=== PATIENT | female | born 1950 | race Caucasian/White ===

== ENCOUNTER 2016-09-28 15:34 | Inpatient (IN) | payer OTHER ==
[~2016-09-28] VITALS: Ht 167.6 cm; Wt 77.6 kg
[2016-09-29 08:00] VITALS: BP 124/71
[2016-09-29] MEDS ORDERED: LIDOCAINE 1%, 20ML ONE (08:38)
[2016-09-29] MEDS ORDERED: FENTANYL PF 100 MCG/2ML ONE (08:39)
[2016-09-29] MEDS ORDERED: MIDAZOLAM 1 MG/ML, 5ML ONE (08:39)
[2016-09-29] MEDS ORDERED: FLUMAZENIL 0.1 MG/1 ML, 5ML ONE (08:39)
[2016-09-29] MEDS ORDERED: NALOXONE 1 MG/ML, 2ML ONE (08:39)
[2016-09-29 09:00] VITALS: BP 124/71
[2016-09-29] MEDS ORDERED: HYDROcodone/APAP 5/325 TABLET ONE (10:41)
[2016-09-29] MEDS: HYDROcodone/APAP 5/325 TABLET PO PRN (12:30)
[2016-09-29 17:22] VITALS: BP 106/53
[2016-09-29 19:05] VITALS: BP 119/71
[2016-09-29 21:36] VITALS: BP 119/71
[2016-09-30] VITALS (7 sets, daily range): BP systolic 111–130; BP diastolic 63–72
[2016-09-30 01:58] LABS: DIFF TOTAL CELLS COUNTED 100 CELL DIFF
[2016-09-30 02:00] LABS: VERIFY COUNTS? YES
[2016-09-30 02:01] LABS: OVALOCYTES 1+
[2016-09-30] MEDS ORDERED: PAROXETINE 10 MG TABLET PO SCH (09:00)
[2016-09-30] MEDS: ALLOPURINOL 300 MG TABLET PO SCH (09:31)
[2016-09-30] MEDS: HYDROCHLOROTHIAZIDE 25 MG TABLET PO SCH (09:31)
[2016-09-30] MEDS: LISINOPRIL 20 MG TABLET PO SCH (09:31)
[2016-09-30 10:42] LABS: ASPARTATE AMINO TRANSFERASE 25 U/L (15-37); BLOOD UREA NITROGEN 15 mg/dL (7-18)
[2016-09-30 12:18] LABS: DIFF TOTAL CELLS COUNTED 100 CELL DIFF
[2016-09-30 12:26] LABS: VERIFY COUNTS? YES
[2016-09-30 12:28] LABS: OVALOCYTES 1+
[2016-09-30 13:06] LABS: ASPARTATE AMINO TRANSFERASE 23 U/L (15-37); BLOOD UREA NITROGEN 14 mg/dL (7-18); TOTAL IRON BINDING CAPACITY 372 mcg/dL (250-450)
[2016-09-30] MEDS: PAROXETINE 10 MG TABLET PO SCH (21:11)
[2016-10-01 02:25] VITALS: BP 117/67
[2016-10-01 05:39] LABS: HIV 1&2 ANTIBODY SCREEN Nonreactive (Nonreactive); HIV-1 p24 ANTIGEN Nonreactive (Nonreactive)
[2016-10-01 06:05] LABS: DIFF TOTAL CELLS COUNTED 100 CELL DIFF
[2016-10-01 06:10] LABS: VERIFY COUNTS? YES
[2016-10-01 06:38] LABS: DYSPLASTIC NEUTROPHILS 1+
[2016-10-01] MEDS: LISINOPRIL 20 MG TABLET PO SCH (07:36)
[2016-10-01] MEDS: ALLOPURINOL 300 MG TABLET PO SCH (07:37)
[2016-10-01] MEDS: HYDROCHLOROTHIAZIDE 25 MG TABLET PO SCH (07:37)
[2016-10-01 07:39] VITALS: BP 107/62
[2016-10-01 13:36] VITALS: BP 18/71
[2016-10-01 19:33] VITALS: BP 126/74
[2016-10-01] MEDS: PAROXETINE 10 MG TABLET PO SCH (20:56)
[2016-10-02 04:01] VITALS: BP 111/70
[2016-10-02 05:06] LABS: ASPARTATE AMINO TRANSFERASE 22 U/L (15-37); BLOOD UREA NITROGEN 20 mg/dL (7-18)
[2016-10-02 05:51] LABS: DIFF TOTAL CELLS COUNTED 100 CELL DIFF
[2016-10-02 05:57] LABS: VERIFY COUNTS? YES
[2016-10-02 05:58] LABS: ANISOCYTOSIS 1+; POLYCHROMASIA 1+
[2016-10-02 05:59] LABS: DYSPLASTIC NEUTROPHILS 1+
[2016-10-02 08:00] VITALS: BP 117/77
[2016-10-02] MEDS: LISINOPRIL 20 MG TABLET PO SCH (09:14)
[2016-10-02] MEDS: ALLOPURINOL 300 MG TABLET PO SCH (09:14)
[2016-10-02] MEDS: SODIUM CHLORIDE 0.9% 1,000 ML IV SCH ×2 (09:16→20:04)
[2016-10-02] MEDS: ONDANSETRON 16 MG, DEXAMETHASONE 10 MG in SODIUM CHLORIDE 0.9% 50 ML IVPB SCH (09:44)
[2016-10-02] MEDS: FAMOTIDINE 20 MG/2 ML IVPush SCH (09:44)
[2016-10-02] MEDS: IDARUBICIN IV SCH (11:14)
[2016-10-02] MEDS: SODIUM CHLORIDE 0.9% IV SCH (11:15)
[2016-10-02] MEDS: CYTARABINE IV SCH (11:15)
[2016-10-02 13:10] VITALS: BP 99/53
[2016-10-02 19:01] VITALS: BP 105/59
[2016-10-02] MEDS: PAROXETINE 10 MG TABLET PO SCH (22:30)
[2016-10-03] VITALS (7 sets, daily range): BP systolic 108–123; BP diastolic 54–65
[2016-10-03] MEDS: SODIUM CHLORIDE 0.9% 1,000 ML IV SCH ×2 (04:59→14:41)
[2016-10-03 05:42] LABS: BLOOD UREA NITROGEN 22 mg/dL (7-18)
[2016-10-03 05:46] LABS: ASPARTATE AMINO TRANSFERASE 16 U/L (15-37)
[2016-10-03 06:14] LABS: DIFF TOTAL CELLS COUNTED 100 CELL DIFF
[2016-10-03 06:20] LABS: VERIFY COUNTS? YES
[2016-10-03 06:21] LABS: OVALOCYTES 1+
[2016-10-03] MEDS: ALLOPURINOL 300 MG TABLET PO SCH (07:29)
[2016-10-03] MEDS: LISINOPRIL 20 MG TABLET PO SCH (07:29)
[2016-10-03] MEDS: FAMOTIDINE 20 MG/2 ML IVPush SCH (10:21)
[2016-10-03] MEDS: ONDANSETRON 16 MG, DEXAMETHASONE 10 MG in SODIUM CHLORIDE 0.9% 50 ML IVPB SCH (10:21)
[2016-10-03] MEDS: IDARUBICIN IV SCH (11:22)
[2016-10-03] MEDS: CYTARABINE IV SCH (11:23)
[2016-10-03] MEDS: SODIUM CHLORIDE 0.9% IV SCH (11:23)
[2016-10-03] MEDS ORDERED: ACETAMINOPHEN 325 MG TABLET PO ONE (14:30)
[2016-10-03] MEDS ORDERED: DIPHENHYDRAMINE 25 MG CAPSULE PO PRN (14:30)
[2016-10-03] MEDS ORDERED: ACETAMINOPHEN 325 MG TABLET PO PRN (14:30)
[2016-10-03] MEDS: PAROXETINE 10 MG TABLET PO SCH (20:50)
[2016-10-04] MEDS: SODIUM CHLORIDE 0.9% 1,000 ML IV SCH ×3 (03:19→22:48)
[2016-10-04 04:55] VITALS: BP 128/63
[2016-10-04 06:02] LABS: ASPARTATE AMINO TRANSFERASE 17 U/L (15-37); BLOOD UREA NITROGEN 21 mg/dL (7-18)
[2016-10-04 06:38] LABS: DIFF TOTAL CELLS COUNTED 100 CELL DIFF
[2016-10-04 06:39] LABS: VERIFY COUNTS? YES
[2016-10-04 06:40] LABS: ANISOCYTOSIS 1+; OVALOCYTES 1+
[2016-10-04 07:13] VITALS: BP 118/68
[2016-10-04] MEDS: ALLOPURINOL 300 MG TABLET PO SCH (07:41)
[2016-10-04] MEDS: LISINOPRIL 20 MG TABLET PO SCH (07:41)
[2016-10-04] MEDS: FAMOTIDINE 20 MG/2 ML IVPush SCH (10:00)
[2016-10-04] MEDS: ONDANSETRON 16 MG, DEXAMETHASONE 10 MG in SODIUM CHLORIDE 0.9% 50 ML IVPB SCH (10:00)
[2016-10-04] MEDS: IDARUBICIN IV SCH (11:21)
[2016-10-04] MEDS: CYTARABINE IV SCH (11:22)
[2016-10-04] MEDS: SODIUM CHLORIDE 0.9% IV SCH (11:22)
[2016-10-04] MEDS ORDERED: FUROSEMIDE 20 MG/2 ML IV ONE (12:30)
[2016-10-04 13:13] VITALS: BP 107/59
[2016-10-04] MEDS: CIPROFLOXACIN 500 MG TABLET PO SCH ×2 (13:17→20:49)
[2016-10-04 20:04] VITALS: BP 109/55
[2016-10-04] MEDS: POLYETHYLENE GLYCOL 17 GM PACKET PO PRN (20:49)
[2016-10-04] MEDS: PAROXETINE 10 MG TABLET PO SCH (20:49)
[2016-10-04] MEDS: ACYCLOVIR 200 MG CAPSULE PO SCH (20:49)
[2016-10-05] VITALS (7 sets, daily range): BP systolic 117–133; BP diastolic 59–70
[2016-10-05 06:24] LABS: BLOOD UREA NITROGEN 24 mg/dL (7-18)
[2016-10-05 06:27] LABS: ASPARTATE AMINO TRANSFERASE 16 U/L (15-37)
[2016-10-05 06:44] LABS: DIFF TOTAL CELLS COUNTED 100 CELL DIFF
[2016-10-05 06:58] LABS: ANISOCYTOSIS 1+; VERIFY COUNTS? YES
[2016-10-05 06:59] LABS: OVALOCYTES 1+
[2016-10-05] MEDS ORDERED: ACETAMINOPHEN 325 MG TABLET PO ONE (08:00)
[2016-10-05] MEDS: DIPHENHYDRAMINE 25 MG CAPSULE PO PRN (08:50)
[2016-10-05] MEDS: ALLOPURINOL 300 MG TABLET PO SCH (08:51)
[2016-10-05] MEDS: CIPROFLOXACIN 500 MG TABLET PO SCH ×2 (08:51→20:56)
[2016-10-05] MEDS: ACYCLOVIR 200 MG CAPSULE PO SCH ×2 (08:51→20:56)
[2016-10-05] MEDS: LISINOPRIL 20 MG TABLET PO SCH (08:52)
[2016-10-05] MEDS: ONDANSETRON 16 MG, DEXAMETHASONE 10 MG in SODIUM CHLORIDE 0.9% 50 ML IVPB SCH (10:00)
[2016-10-05] MEDS: SODIUM CHLORIDE 0.9% 1,000 ML IV SCH ×2 (10:01→22:46)
[2016-10-05] MEDS: FAMOTIDINE 20 MG/2 ML IVPush SCH (10:08)
[2016-10-05] MEDS: CYTARABINE IV SCH (13:44)
[2016-10-05] MEDS: SODIUM CHLORIDE 0.9% IV SCH (13:44)
[2016-10-05] MEDS: PAROXETINE 10 MG TABLET PO SCH (20:56)
[2016-10-05] MEDS: POLYETHYLENE GLYCOL 17 GM PACKET PO PRN (20:57)
[2016-10-06 04:00] VITALS: BP 130/73
[2016-10-06 06:41] LABS: DIFF TOTAL CELLS COUNTED 50 CELL DIFFERENTIAL
[2016-10-06 06:42] LABS: ANISOCYTOSIS 1+; OVALOCYTES 1+; VERIFY COUNTS? YES
[2016-10-06 06:54] LABS: ASPARTATE AMINO TRANSFERASE 70 U/L (15-37); BLOOD UREA NITROGEN 24 mg/dL (7-18)
[2016-10-06] MEDS: ALLOPURINOL 300 MG TABLET PO SCH (09:00)
[2016-10-06 09:41] VITALS: BP 111/57
[2016-10-06] MEDS: CIPROFLOXACIN 500 MG TABLET PO SCH ×2 (09:57→19:52)
[2016-10-06] MEDS: ACYCLOVIR 200 MG CAPSULE PO SCH ×2 (09:57→19:51)
[2016-10-06] MEDS: LISINOPRIL 20 MG TABLET PO SCH (09:57)
[2016-10-06] MEDS: SODIUM CHLORIDE 0.9% 1,000 ML IV SCH ×2 (09:58→19:51)
[2016-10-06] MEDS: ONDANSETRON 16 MG, DEXAMETHASONE 10 MG in SODIUM CHLORIDE 0.9% 50 ML IVPB SCH (12:14)
[2016-10-06] MEDS: FAMOTIDINE 20 MG/2 ML IVPush SCH (12:15)
[2016-10-06 13:43] VITALS: BP 125/66
[2016-10-06] MEDS: SODIUM CHLORIDE 0.9% IV SCH (15:37)
[2016-10-06] MEDS: CYTARABINE IV SCH (15:37)
[2016-10-06 19:54] VITALS: BP 128/67
[2016-10-06] MEDS: PAROXETINE 10 MG TABLET PO SCH (22:41)
[2016-10-07] VITALS (9 sets, daily range): BP systolic 127–148; BP diastolic 60–84
[2016-10-07] MEDS: SODIUM CHLORIDE 0.9% 1,000 ML IV SCH ×2 (05:16→22:17)
[2016-10-07 05:30] LABS: BLOOD UREA NITROGEN 23 mg/dL (7-18)
[2016-10-07 05:33] LABS: ASPARTATE AMINO TRANSFERASE 38 U/L (15-37)
[2016-10-07 06:05] LABS: DIFF TOTAL CELLS COUNTED 50 CELL DIFFERENTIAL
[2016-10-07 06:10] LABS: VERIFY COUNTS? YES
[2016-10-07 06:11] LABS: ANISOCYTOSIS 1+
[2016-10-07 06:12] LABS: OVALOCYTES 1+
[2016-10-07] MEDS: ACYCLOVIR 200 MG CAPSULE PO SCH ×2 (08:54→20:19)
[2016-10-07] MEDS: CIPROFLOXACIN 500 MG TABLET PO SCH ×2 (08:54→20:19)
[2016-10-07] MEDS: LISINOPRIL 20 MG TABLET PO SCH (08:54)
[2016-10-07] MEDS: POLYETHYLENE GLYCOL 17 GM PACKET PO SCH (08:58)
[2016-10-07] MEDS: ONDANSETRON 16 MG, DEXAMETHASONE 10 MG in SODIUM CHLORIDE 0.9% 50 ML IVPB SCH (13:47)
[2016-10-07] MEDS: FAMOTIDINE 20 MG/2 ML IVPush SCH (13:47)
[2016-10-07] MEDS: CYTARABINE IV SCH (15:06)
[2016-10-07] MEDS: SODIUM CHLORIDE 0.9% IV SCH (15:06)
[2016-10-07] MEDS ORDERED: FUROSEMIDE 20 MG/2 ML IV ONE (17:30)
[2016-10-07] MEDS: PAROXETINE 10 MG TABLET PO SCH (22:17)
[2016-10-08 02:11] VITALS: BP 125/72
[2016-10-08 06:01] LABS: ASPARTATE AMINO TRANSFERASE 50 U/L (15-37); BLOOD UREA NITROGEN 21 mg/dL (7-18)
[2016-10-08 06:44] LABS: DIFF TOTAL CELLS COUNTED 100 CELL DIFF
[2016-10-08 06:50] LABS: ANISOCYTOSIS 1+; VERIFY COUNTS? YES
[2016-10-08 07:12] VITALS: BP 145/80
[2016-10-08] MEDS: ACYCLOVIR 200 MG CAPSULE PO SCH ×2 (07:20→21:10)
[2016-10-08] MEDS: SODIUM CHLORIDE 0.9% 1,000 ML IV SCH ×2 (07:21→17:59)
[2016-10-08] MEDS: POLYETHYLENE GLYCOL 17 GM PACKET PO SCH (07:21)
[2016-10-08] MEDS: LISINOPRIL 20 MG TABLET PO SCH (07:21)
[2016-10-08] MEDS: CIPROFLOXACIN 500 MG TABLET PO SCH ×2 (07:21→21:10)
[2016-10-08 13:33] VITALS: BP 117/59
[2016-10-08] MEDS: FAMOTIDINE 20 MG/2 ML IVPush SCH (13:50)
[2016-10-08] MEDS: ONDANSETRON 16 MG, DEXAMETHASONE 10 MG in SODIUM CHLORIDE 0.9% 50 ML IVPB SCH (13:50)
[2016-10-08] MEDS: CYTARABINE IV SCH (15:26)
[2016-10-08] MEDS: SODIUM CHLORIDE 0.9% IV SCH (15:26)
[2016-10-08 20:00] VITALS: BP 124/76
[2016-10-08] MEDS: PAROXETINE 10 MG TABLET PO SCH (22:32)
[2016-10-09 01:56] VITALS: BP 124/63
[2016-10-09] MEDS: SODIUM CHLORIDE 0.9% 1,000 ML IV SCH ×2 (04:38→15:07)
[2016-10-09 05:59] LABS: ASPARTATE AMINO TRANSFERASE 32 U/L (15-37); BLOOD UREA NITROGEN 21 mg/dL (7-18)
[2016-10-09 06:44] VITALS: BP 157/82
[2016-10-09 07:12] LABS: ANISOCYTOSIS 1+; DIFF TOTAL CELLS COUNTED 25 CELL DIFFERENTIAL; VERIFY COUNTS? YES
[2016-10-09] MEDS: CIPROFLOXACIN 500 MG TABLET PO SCH ×2 (09:12→19:40)
[2016-10-09] MEDS: ACYCLOVIR 200 MG CAPSULE PO SCH ×2 (09:12→19:40)
[2016-10-09] MEDS: LISINOPRIL 20 MG TABLET PO SCH (09:13)
[2016-10-09] MEDS: POLYETHYLENE GLYCOL 17 GM PACKET PO SCH (09:13)
[2016-10-09 14:07] LABS: CMV QUANT DNA PCR BLOOD Negative (Negative)
[2016-10-09 14:17] VITALS: BP 104/58
[2016-10-09] MEDS ORDERED: FAMOTIDINE 20 MG TABLET PO PRN (17:00)
[2016-10-09] MEDS ORDERED: FAMOTIDINE 20 MG/2 ML IVPush ONE (17:00)
[2016-10-09] MEDS ORDERED: ONDANSETRON 16 MG, DEXAMETHASONE 10 MG in SODIUM CHLORIDE 0.9% 50 ML IV ONE (17:30)
[2016-10-09 18:46] VITALS: BP 135/65
[2016-10-09] MEDS ORDERED: FUROSEMIDE 20 MG/2 ML IV ONE (22:00)
[2016-10-09] MEDS: PAROXETINE 10 MG TABLET PO SCH (22:22)
[2016-10-10] MEDS: SODIUM CHLORIDE 0.9% 1,000 ML IV SCH ×3 (01:18→20:34)
[2016-10-10 01:58] VITALS: BP 105/51
[2016-10-10 04:31] LABS: BLOOD UREA NITROGEN 21 mg/dL (7-18)
[2016-10-10 04:32] LABS: ASPARTATE AMINO TRANSFERASE 29 U/L (15-37)
[2016-10-10 04:58] LABS: DIFF TOTAL CELLS COUNTED 100 CELL DIFF
[2016-10-10 05:04] LABS: ANISOCYTOSIS 1+; OVALOCYTES 1+
[2016-10-10 05:10] LABS: VERIFY COUNTS? YES
[2016-10-10 07:28] VITALS: BP 126/73
[2016-10-10] MEDS: ACYCLOVIR 200 MG CAPSULE PO SCH ×2 (09:23→20:34)
[2016-10-10] MEDS: CIPROFLOXACIN 500 MG TABLET PO SCH ×2 (09:23→20:34)
[2016-10-10] MEDS: LISINOPRIL 20 MG TABLET PO SCH (09:23)
[2016-10-10] MEDS: POLYETHYLENE GLYCOL 17 GM PACKET PO SCH (09:24)
[2016-10-10] MEDS: ONDANSETRON 2MG/ML, 2ML IVPush PRN (12:58)
[2016-10-10 14:10] VITALS: BP 98/50
[2016-10-10] MEDS: FAMOTIDINE 20 MG TABLET PO SCH (20:34)
[2016-10-10 20:35] VITALS: BP 130/66
[2016-10-10] MEDS: PAROXETINE 10 MG TABLET PO SCH (22:49)
[2016-10-11 00:47] VITALS: BP 130/70
[2016-10-11 05:14] VITALS: BP 112/59
[2016-10-11] MEDS ORDERED: PHARMACOKINETIC MONITORING MC PRN (05:30)
[2016-10-11] MEDS ORDERED: VANCOMYCIN PER PHARMACY MC PRN (05:30)
[2016-10-11] MEDS ORDERED: PIPERACILLIN/TAZO 3.375 GM in SODIUM CHLORIDE 0.9% 50 ML IV SCH (05:30)
[2016-10-11 05:49] LABS: DIFF TOTAL CELLS COUNTED 25 CELL DIFFERENTIAL
[2016-10-11 05:52] LABS: ASPARTATE AMINO TRANSFERASE 14 U/L (15-37); BLOOD UREA NITROGEN 15 mg/dL (7-18)
[2016-10-11 05:53] LABS: VERIFY COUNTS? YES
[2016-10-11 05:54] LABS: ANISOCYTOSIS 1+
[2016-10-11 05:55] LABS: OVALOCYTES 1+
[2016-10-11] MEDS: PIPERACILLIN/TAZO/PMX 3.375GM 50 ML IV SCH ×4 (06:13→23:36)
[2016-10-11 07:14] VITALS: BP 115/64
[2016-10-11] MEDS: VANCOMYCIN 1,500 MG in SODIUM CHLORIDE 0.9% 250 ML IV SCH (07:32)
[2016-10-11] MEDS: SODIUM CHLORIDE 0.9% 1,000 ML IV SCH ×2 (07:32→17:48)
[2016-10-11] MEDS ORDERED: FLUCONAZOLE 200 MG TABLET PO ONE (08:30)
[2016-10-11] MEDS: NEUTRA PHOS K 250 MG TABLET PO SCH ×2 (08:56→21:47)
[2016-10-11] MEDS: CIPROFLOXACIN 500 MG TABLET PO SCH (08:57)
[2016-10-11] MEDS: FAMOTIDINE 20 MG TABLET PO SCH (08:57)
[2016-10-11] MEDS: LISINOPRIL 20 MG TABLET PO SCH (08:57)
[2016-10-11] MEDS: ACYCLOVIR 200 MG CAPSULE PO SCH ×2 (08:57→21:47)
[2016-10-11] MEDS: POLYETHYLENE GLYCOL 17 GM PACKET PO SCH (08:57)
[2016-10-11] MEDS: maalox/diphenh/lido/sucralfate 5 ML PO SCH ×3 (10:01→21:46)
[2016-10-11] MEDS: ACETAMINOPHEN 325 MG TABLET PO PRN (10:30)
[2016-10-11] MEDS: MICAFUNGIN 100 MG in SODIUM CHLORIDE 0.9% 100 ML IV SCH (11:52)
[2016-10-11 14:59] VITALS: BP 111/49
[2016-10-11] MEDS: NYSTATIN 500,000 UNITS/5 ML UDC PO SCH ×2 (17:00→21:46)
[2016-10-11] MEDS: ONDANSETRON 2MG/ML, 2ML IVPush PRN (17:00)
[2016-10-11 18:38] VITALS: BP 105/61
[2016-10-11] MEDS ORDERED: ACETAMINOPHEN 650 MG/20.3 ML UDC PO PRN (19:00)
[2016-10-11 19:41] VITALS: BP 101/66
[2016-10-11] MEDS: FAMOTIDINE 20 MG/2 ML IVPush SCH (21:47)
[2016-10-11] MEDS: PAROXETINE 10 MG TABLET PO SCH (22:35)
[2016-10-12] VITALS (8 sets, daily range): BP systolic 82–117; BP diastolic 47–73
[2016-10-12] MEDS: SODIUM CHLORIDE 0.9% 1,000 ML IV SCH ×2 (03:25→22:17)
[2016-10-12 04:20] LABS: ASPARTATE AMINO TRANSFERASE 11 U/L (15-37); BLOOD UREA NITROGEN 11 mg/dL (7-18)
[2016-10-12 05:03] LABS: DIFF TOTAL CELLS COUNTED 100 CELL DIFF
[2016-10-12 05:13] LABS: ANISOCYTOSIS 1+; OVALOCYTES 1+; VERIFY COUNTS? YES
[2016-10-12] MEDS: PIPERACILLIN/TAZO/PMX 3.375GM 50 ML IV SCH ×3 (05:38→23:21)
[2016-10-12] MEDS: VANCOMYCIN 1,500 MG in SODIUM CHLORIDE 0.9% 250 ML IV SCH (06:11)
[2016-10-12] MEDS: NYSTATIN 500,000 UNITS/5 ML UDC PO SCH ×4 (06:11→22:17)
[2016-10-12] MEDS: maalox/diphenh/lido/sucralfate 5 ML PO SCH ×3 (08:51→22:17)
[2016-10-12] MEDS: FAMOTIDINE 20 MG/2 ML IVPush SCH ×2 (08:51→22:17)
[2016-10-12] MEDS: ACYCLOVIR 200 MG CAPSULE PO SCH ×2 (08:51→22:17)
[2016-10-12] MEDS: LISINOPRIL 20 MG TABLET PO SCH (08:52)
[2016-10-12] MEDS: NEUTRA PHOS K 250 MG TABLET PO SCH (08:52)
[2016-10-12] MEDS: POLYETHYLENE GLYCOL 17 GM PACKET PO SCH (08:52)
[2016-10-12] MEDS ORDERED: FLUCONAZOLE 100 MG TABLET PO SCH (09:00)
[2016-10-12] MEDS: MICAFUNGIN 100 MG in SODIUM CHLORIDE 0.9% 100 ML IV SCH (11:33)
[2016-10-12] MEDS: PAROXETINE 10 MG TABLET PO SCH (22:17)
[2016-10-13] VITALS (8 sets, daily range): BP systolic 98–120; BP diastolic 50–60
[2016-10-13] MEDS: PIPERACILLIN/TAZO/PMX 3.375GM 50 ML IV SCH ×4 (05:32→23:49)
[2016-10-13 06:02] LABS: ASPARTATE AMINO TRANSFERASE 6 U/L (15-37); BLOOD UREA NITROGEN 13 mg/dL (7-18)
[2016-10-13] MEDS: VANCOMYCIN 1,500 MG in SODIUM CHLORIDE 0.9% 250 ML IV SCH (06:51)
[2016-10-13] MEDS: NYSTATIN 500,000 UNITS/5 ML UDC PO SCH ×4 (06:51→20:56)
[2016-10-13] MEDS: POLYETHYLENE GLYCOL 17 GM PACKET PO SCH (09:00)
[2016-10-13 09:07] LABS: ANISOCYTOSIS 1+; DIFF TOTAL CELLS COUNTED 25 CELL DIFFERENTIAL; OVALOCYTES 1+; VERIFY COUNTS? YES
[2016-10-13] MEDS: SODIUM CHLORIDE 0.9% 1,000 ML IV SCH ×2 (10:42→17:39)
[2016-10-13] MEDS: ACYCLOVIR 200 MG CAPSULE PO SCH ×2 (10:42→20:57)
[2016-10-13] MEDS: LISINOPRIL 20 MG TABLET PO SCH (10:42)
[2016-10-13] MEDS: POTASSIUM CHLORIDE 20 MEQ TAB.ER.PRT PO SCH ×2 (10:42→17:34)
[2016-10-13] MEDS: FAMOTIDINE 20 MG/2 ML IVPush SCH ×2 (10:43→20:56)
[2016-10-13] MEDS: maalox/diphenh/lido/sucralfate 5 ML PO SCH ×3 (10:43→20:57)
[2016-10-13] MEDS: MICAFUNGIN 100 MG in SODIUM CHLORIDE 0.9% 100 ML IV SCH (11:44)
[2016-10-13] MEDS: ONDANSETRON 2MG/ML, 2ML IVPush PRN (20:33)
[2016-10-13] MEDS: PAROXETINE 10 MG TABLET PO SCH (22:29)
[2016-10-14 02:00] VITALS: BP 107/56
[2016-10-14] MEDS: SODIUM CHLORIDE 0.9% 1,000 ML IV SCH ×2 (03:57→21:11)
[2016-10-14 04:56] LABS: BLOOD UREA NITROGEN 12 mg/dL (7-18)
[2016-10-14 05:00] LABS: ASPARTATE AMINO TRANSFERASE 6 U/L (15-37)
[2016-10-14 05:04] LABS: DIFF TOTAL CELLS COUNTED 25 CELL DIFFERENTIAL
[2016-10-14 05:05] LABS: ANISOCYTOSIS 1+; OVALOCYTES 1+; VERIFY COUNTS? YES
[2016-10-14 05:43] VITALS: BP 100/55
[2016-10-14] MEDS: DIPHENHYDRAMINE 25 MG CAPSULE PO PRN (05:58)
[2016-10-14] MEDS: ACETAMINOPHEN 325 MG TABLET PO PRN ×2 (05:58→21:17)
[2016-10-14] MEDS: PIPERACILLIN/TAZO/PMX 3.375GM 50 ML IV SCH ×4 (05:58→23:30)
[2016-10-14] MEDS: NYSTATIN 500,000 UNITS/5 ML UDC PO SCH ×4 (06:00→21:00)
[2016-10-14 06:07] VITALS: BP 100/55
[2016-10-14] MEDS: VANCOMYCIN 1,500 MG in SODIUM CHLORIDE 0.9% 250 ML IV SCH (06:46)
[2016-10-14 07:04] VITALS: BP 106/53
[2016-10-14] MEDS: LISINOPRIL 20 MG TABLET PO SCH (08:35)
[2016-10-14] MEDS: FAMOTIDINE 20 MG/2 ML IVPush SCH ×2 (08:35→21:11)
[2016-10-14] MEDS: ACYCLOVIR 200 MG CAPSULE PO SCH ×2 (08:35→21:12)
[2016-10-14] MEDS: maalox/diphenh/lido/sucralfate 5 ML PO SCH ×3 (08:35→21:12)
[2016-10-14] MEDS: POTASSIUM CHLORIDE 20 MEQ TAB.ER.PRT PO SCH ×2 (08:36→16:59)
[2016-10-14] MEDS: POLYETHYLENE GLYCOL 17 GM PACKET PO SCH (08:38)
[2016-10-14] MEDS: LOPERAMIDE 2 MG CAPSULE PO PRN ×2 (09:55→22:46)
[2016-10-14] MEDS: MICAFUNGIN 100 MG in SODIUM CHLORIDE 0.9% 100 ML IV SCH (11:34)
[2016-10-14] MEDS: ONDANSETRON 2MG/ML, 2ML IVPush PRN ×2 (11:34→17:03)
[2016-10-14 12:28] VITALS: BP 93/51
[2016-10-14 20:32] VITALS: BP 136/59
[2016-10-14] MEDS: PAROXETINE 10 MG TABLET PO SCH (22:46)
[2016-10-15] VITALS (9 sets, daily range): BP systolic 95–138; BP diastolic 48–71
[2016-10-15] MEDS: SODIUM CHLORIDE 0.9% 1,000 ML IV SCH ×2 (04:52→19:39)
[2016-10-15] MEDS: PIPERACILLIN/TAZO/PMX 3.375GM 50 ML IV SCH ×4 (04:52→22:46)
[2016-10-15 05:09] LABS: ASPARTATE AMINO TRANSFERASE 7 U/L (15-37); BLOOD UREA NITROGEN 13 mg/dL (7-18)
[2016-10-15] MEDS: NYSTATIN 500,000 UNITS/5 ML UDC PO SCH ×4 (06:00→22:45)
[2016-10-15] MEDS: VANCOMYCIN 1,500 MG in SODIUM CHLORIDE 0.9% 250 ML IV SCH (06:00)
[2016-10-15 06:47] LABS: DIFF TOTAL CELLS COUNTED 25 CELL DIFFERENTIAL
[2016-10-15 06:48] LABS: VERIFY COUNTS? YES
[2016-10-15 06:50] LABS: ANISOCYTOSIS 1+; OVALOCYTES 1+
[2016-10-15] MEDS: POLYETHYLENE GLYCOL 17 GM PACKET PO SCH (09:00)
[2016-10-15] MEDS: FAMOTIDINE 20 MG/2 ML IVPush SCH ×2 (09:24→22:46)
[2016-10-15] MEDS: ACYCLOVIR 200 MG CAPSULE PO SCH ×2 (09:25→22:46)
[2016-10-15] MEDS: LISINOPRIL 20 MG TABLET PO SCH (09:25)
[2016-10-15] MEDS: maalox/diphenh/lido/sucralfate 5 ML PO SCH ×3 (09:25→22:45)
[2016-10-15] MEDS: ONDANSETRON 2MG/ML, 2ML IVPush PRN ×2 (09:44→13:50)
[2016-10-15] MEDS: DIPHENHYDRAMINE 25 MG CAPSULE PO PRN (09:46)
[2016-10-15] MEDS: ACETAMINOPHEN 325 MG TABLET PO PRN (09:47)
[2016-10-15] MEDS: MICAFUNGIN 100 MG in SODIUM CHLORIDE 0.9% 100 ML IV SCH (13:50)
[2016-10-15] MEDS: VANCOMYCIN 1,300 MG in SODIUM CHLORIDE 0.9% 250 ML IV SCH (19:43)
[2016-10-15] MEDS: PAROXETINE 10 MG TABLET PO SCH (22:46)
[2016-10-16] VITALS (7 sets, daily range): BP systolic 119–141; BP diastolic 59–76
[2016-10-16] MEDS: HYDROcodone/APAP 5/325 TABLET PO PRN (03:19)
[2016-10-16 05:29] LABS: ASPARTATE AMINO TRANSFERASE 12 U/L (15-37); BLOOD UREA NITROGEN 10 mg/dL (7-18)
[2016-10-16] MEDS: PIPERACILLIN/TAZO/PMX 3.375GM 50 ML IV SCH ×3 (05:44→20:19)
[2016-10-16] MEDS: SODIUM CHLORIDE 0.9% 1,000 ML IV SCH ×3 (05:44→20:19)
[2016-10-16] MEDS: NYSTATIN 500,000 UNITS/5 ML UDC PO SCH ×4 (05:45→20:20)
[2016-10-16 07:00] LABS: ANISOCYTOSIS 1+
[2016-10-16 07:01] LABS: OVALOCYTES 1+
[2016-10-16] MEDS: VANCOMYCIN 1,300 MG in SODIUM CHLORIDE 0.9% 250 ML IV SCH ×2 (08:48→21:15)
[2016-10-16] MEDS: POLYETHYLENE GLYCOL 17 GM PACKET PO SCH (08:48)
[2016-10-16] MEDS: FAMOTIDINE 20 MG/2 ML IVPush SCH ×2 (08:50→20:19)
[2016-10-16] MEDS: maalox/diphenh/lido/sucralfate 5 ML PO SCH ×3 (08:53→20:19)
[2016-10-16] MEDS: LISINOPRIL 20 MG TABLET PO SCH (08:55)
[2016-10-16] MEDS: ACYCLOVIR 200 MG CAPSULE PO SCH ×2 (08:55→20:20)
[2016-10-16] MEDS: HYDROCORTISONE 100 MG INJ. IVPush PRN (09:32)
[2016-10-16] MEDS: MICAFUNGIN 100 MG in SODIUM CHLORIDE 0.9% 100 ML IV SCH (11:02)
[2016-10-16] MEDS: ONDANSETRON 2MG/ML, 2ML IVPush PRN ×2 (12:21→18:41)
[2016-10-16] MEDS ORDERED: LIDOCAINE 1%, 20ML ONE (12:24)
[2016-10-16] MEDS ORDERED: MIDAZOLAM 1 MG/ML, 5ML ONE (12:39)
[2016-10-16] MEDS ORDERED: FLUMAZENIL 0.1 MG/1 ML, 5ML ONE (12:40)
[2016-10-16] MEDS ORDERED: FENTANYL PF 100 MCG/2ML ONE (12:40)
[2016-10-16] MEDS ORDERED: NALOXONE 1 MG/ML, 2ML ONE (12:40)
[2016-10-16] MEDS: LOPERAMIDE 2 MG CAPSULE PO PRN (16:29)
[2016-10-16] MEDS: PAROXETINE 10 MG TABLET PO SCH (22:35)
[2016-10-17 02:02] VITALS: BP 153/74
[2016-10-17] MEDS: PIPERACILLIN/TAZO/PMX 3.375GM 50 ML IV SCH ×4 (02:16→20:23)
[2016-10-17 05:22] LABS: ASPARTATE AMINO TRANSFERASE 9 U/L (15-37); BLOOD UREA NITROGEN 10 mg/dL (7-18)
[2016-10-17 06:14] LABS: DIFF TOTAL CELLS COUNTED 100 CELL DIFF
[2016-10-17 06:19] LABS: ANISOCYTOSIS 1+; SPHEROCYTES 1+
[2016-10-17 06:20] LABS: OVALOCYTES 1+
[2016-10-17 07:15] VITALS: BP 124/62
[2016-10-17 07:19] LABS: VERIFY COUNTS? YES
[2016-10-17] MEDS: NYSTATIN 500,000 UNITS/5 ML UDC PO SCH ×4 (08:18→20:23)
[2016-10-17] MEDS: FAMOTIDINE 20 MG/2 ML IVPush SCH ×2 (08:20→20:22)
[2016-10-17] MEDS: ACYCLOVIR 200 MG CAPSULE PO SCH ×2 (08:21→20:23)
[2016-10-17] MEDS: LISINOPRIL 20 MG TABLET PO SCH (08:21)
[2016-10-17] MEDS: maalox/diphenh/lido/sucralfate 5 ML PO SCH ×3 (08:22→20:23)
[2016-10-17] MEDS: POLYETHYLENE GLYCOL 17 GM PACKET PO SCH (08:22)
[2016-10-17] MEDS: VANCOMYCIN 1,300 MG in SODIUM CHLORIDE 0.9% 250 ML IV SCH ×2 (09:13→21:55)
[2016-10-17] MEDS ORDERED: POTASSIUM CHLORIDE 40 MEQ in SODIUM CHLORIDE 0.9% 500 ML IV ONE (10:00)
[2016-10-17] MEDS: ONDANSETRON 2MG/ML, 2ML IVPush PRN ×2 (11:36→16:25)
[2016-10-17] MEDS: SODIUM CHLORIDE 0.9% 1,000 ML IV SCH ×2 (11:37→20:23)
[2016-10-17] MEDS: MICAFUNGIN 100 MG in SODIUM CHLORIDE 0.9% 100 ML IV SCH (11:46)
[2016-10-17 12:50] VITALS: BP 120/63
[2016-10-17] MEDS: ACETAMINOPHEN 325 MG TABLET PO PRN (14:04)
[2016-10-17] MEDS ORDERED: PROMETHAZINE 25 MG/ML, 1ML IM PRN (15:00)
[2016-10-17 21:27] VITALS: BP 132/69
[2016-10-17] MEDS: PAROXETINE 10 MG TABLET PO SCH (22:29)
[2016-10-18] MEDS: PIPERACILLIN/TAZO/PMX 3.375GM 50 ML IV SCH ×4 (01:11→20:23)
[2016-10-18 01:13] VITALS: BP 140/72
[2016-10-18] MEDS: NYSTATIN 500,000 UNITS/5 ML UDC PO SCH ×4 (05:25→20:23)
[2016-10-18 06:05] LABS: ASPARTATE AMINO TRANSFERASE 20 U/L (15-37); BLOOD UREA NITROGEN 8 mg/dL (7-18)
[2016-10-18 06:53] LABS: ANISOCYTOSIS 1+; DIFF TOTAL CELLS COUNTED 25 CELL DIFFERENTIAL; VERIFY COUNTS? YES
[2016-10-18 06:54] LABS: OVALOCYTES 1+
[2016-10-18 08:00] VITALS: BP 134/68
[2016-10-18] MEDS: FAMOTIDINE 20 MG/2 ML IVPush SCH ×2 (08:19→20:23)
[2016-10-18] MEDS: ACYCLOVIR 200 MG CAPSULE PO SCH ×2 (08:19→20:24)
[2016-10-18] MEDS: LISINOPRIL 20 MG TABLET PO SCH (08:19)
[2016-10-18] MEDS: maalox/diphenh/lido/sucralfate 5 ML PO SCH ×2 (08:19→16:01)
[2016-10-18] MEDS: SODIUM CHLORIDE 0.9% 1,000 ML IV SCH ×2 (08:20→16:11)
[2016-10-18] MEDS: POLYETHYLENE GLYCOL 17 GM PACKET PO SCH (08:20)
[2016-10-18] MEDS ORDERED: VANCOMYCIN 1,300 MG in SODIUM CHLORIDE 0.9% 250 ML IV ONE (10:00)
[2016-10-18] MEDS ORDERED: VANCOMYCIN 1,200 MG in SODIUM CHLORIDE 0.9% 250 ML IV SCH (10:00)
[2016-10-18] MEDS: ONDANSETRON 2MG/ML, 2ML IVPush PRN ×3 (10:10→20:25)
[2016-10-18] MEDS: MICAFUNGIN 100 MG in SODIUM CHLORIDE 0.9% 100 ML IV SCH (11:51)
[2016-10-18] MEDS: ACETAMINOPHEN 325 MG TABLET PO PRN (11:54)
[2016-10-18 15:56] VITALS: BP 141/67
[2016-10-18] MEDS ORDERED: POTASSIUM CHLORIDE 40 MEQ in SODIUM CHLORIDE 0.9% 500 ML IV ONE (16:00)
[2016-10-18 19:35] VITALS: BP 159/83
[2016-10-18] MEDS: PAROXETINE 10 MG TABLET PO SCH (22:35)
[2016-10-18] MEDS: VANCOMYCIN 1,200 MG in SODIUM CHLORIDE 0.9% 250 ML IV SCH (22:35)
[2016-10-19] MEDS: PIPERACILLIN/TAZO/PMX 3.375GM 50 ML IV SCH ×4 (02:23→20:18)
[2016-10-19] MEDS: maalox/diphenh/lido/sucralfate 5 ML PO SCH ×4 (02:23→20:19)
[2016-10-19] MEDS: ACETAMINOPHEN 325 MG TABLET PO PRN ×2 (02:57→14:44)
[2016-10-19 03:11] VITALS: BP 127/64
[2016-10-19 03:11] LABS: ASPARTATE AMINO TRANSFERASE 17 U/L (15-37); BLOOD UREA NITROGEN 5 mg/dL (7-18)
[2016-10-19 03:14] LABS: DIFF TOTAL CELLS COUNTED 100 CELL DIFF
[2016-10-19 03:32] LABS: ANISOCYTOSIS 1+; VERIFY COUNTS? YES
[2016-10-19 03:33] LABS: OVALOCYTES 1+
[2016-10-19] MEDS: NYSTATIN 500,000 UNITS/5 ML UDC PO SCH ×4 (05:27→20:19)
[2016-10-19] MEDS: SODIUM CHLORIDE 0.9% 1,000 ML IV SCH ×2 (05:28→09:32)
[2016-10-19 08:19] VITALS: BP 140/70
[2016-10-19] MEDS: LISINOPRIL 20 MG TABLET PO SCH (09:00)
[2016-10-19] MEDS: POLYETHYLENE GLYCOL 17 GM PACKET PO SCH (09:00)
[2016-10-19] MEDS: ACYCLOVIR 200 MG CAPSULE PO SCH ×2 (09:30→20:18)
[2016-10-19] MEDS: FAMOTIDINE 20 MG/2 ML IVPush SCH ×2 (09:30→20:18)
[2016-10-19] MEDS ORDERED: MAGNESIUM SULFATE PMX 4GM/100M 100 ML IV ONE (10:30)
[2016-10-19] MEDS ORDERED: POTASSIUM CHLORIDE 40 MEQ in SODIUM CHLORIDE 0.9% 500 ML IV ONE (10:30)
[2016-10-19] MEDS: ONDANSETRON 2MG/ML, 2ML IVPush PRN ×3 (10:45→20:22)
[2016-10-19] MEDS: VANCOMYCIN 1,200 MG in SODIUM CHLORIDE 0.9% 250 ML IV SCH ×2 (10:45→22:28)
[2016-10-19] MEDS: MICAFUNGIN 100 MG in SODIUM CHLORIDE 0.9% 100 ML IV SCH (12:41)
[2016-10-19 12:45] VITALS: BP 140/71
[2016-10-19 14:28] LABS: IS PT STATUS REG ER OR PRE ER? NO
[2016-10-19 20:17] VITALS: BP 149/77
[2016-10-19] MEDS: PAROXETINE 10 MG TABLET PO SCH (22:29)
[2016-10-20 01:16] VITALS: BP 146/67
[2016-10-20] MEDS: HYDROcodone/APAP 5/325 TABLET PO PRN (02:04)
[2016-10-20] MEDS: PIPERACILLIN/TAZO/PMX 3.375GM 50 ML IV SCH ×4 (02:04→20:21)
[2016-10-20] MEDS: SODIUM CHLORIDE 0.9% 1,000 ML IV SCH ×2 (02:04→20:21)
[2016-10-20 04:03] LABS: ASPARTATE AMINO TRANSFERASE 12 U/L (15-37); BLOOD UREA NITROGEN 5 mg/dL (7-18)
[2016-10-20 04:46] LABS: DIFF TOTAL CELLS COUNTED 100 CELL DIFF
[2016-10-20 04:58] LABS: ANISOCYTOSIS 1+; OVALOCYTES 1+; VERIFY COUNTS? YES
[2016-10-20] MEDS: NYSTATIN 500,000 UNITS/5 ML UDC PO SCH ×4 (05:09→21:07)
[2016-10-20] MEDS: LISINOPRIL 20 MG TABLET PO SCH (09:00)
[2016-10-20] MEDS: POLYETHYLENE GLYCOL 17 GM PACKET PO SCH (09:00)
[2016-10-20] MEDS: maalox/diphenh/lido/sucralfate 5 ML PO SCH ×3 (10:01→21:07)
[2016-10-20] MEDS: ACYCLOVIR 200 MG CAPSULE PO SCH ×2 (10:01→21:08)
[2016-10-20] MEDS: FAMOTIDINE 20 MG/2 ML IVPush SCH ×2 (10:01→21:07)
[2016-10-20 10:04] VITALS: BP 119/62
[2016-10-20] MEDS: ONDANSETRON 2MG/ML, 2ML IVPush PRN ×2 (10:51→16:16)
[2016-10-20] MEDS ORDERED: POTASSIUM CHLORIDE 40 MEQ in SODIUM CHLORIDE 0.9% 500 ML IV ONE (11:30)
[2016-10-20] MEDS: MICAFUNGIN 100 MG in SODIUM CHLORIDE 0.9% 100 ML IV SCH (12:00)
[2016-10-20] MEDS: ACETAMINOPHEN 325 MG TABLET PO PRN (14:58)
[2016-10-20 16:26] VITALS: BP 139/69
[2016-10-20 19:16] VITALS: BP 150/82
[2016-10-20 21:12] LABS: DIFF TOTAL CELLS COUNTED 100 CELL DIFF
[2016-10-20 21:20] LABS: ANISOCYTOSIS 1+; VERIFY COUNTS? YES
[2016-10-20 21:21] LABS: HYPOCHROMIA 1+
[2016-10-20] MEDS ORDERED: VANCOMYCIN 900 MG in SODIUM CHLORIDE 0.9% 250 ML IV SCH (22:00)
[2016-10-20] MEDS: VANCOMYCIN 900 MG in SODIUM CHLORIDE 0.9% 100 ML IV SCH (22:26)
[2016-10-20] MEDS: PAROXETINE 10 MG TABLET PO SCH (22:26)
[2016-10-20] MEDS: HYDROCORTISONE 100 MG INJ. IVPush PRN (22:27)
[2016-10-20 22:57] VITALS: BP 154/78
[2016-10-20] MEDS: PROMETHAZINE 25MG TABLET PO PRN (23:01)
[2016-10-21 01:00] VITALS: BP 146/78
[2016-10-21 01:18] VITALS: BP 146/75
[2016-10-21] MEDS: PIPERACILLIN/TAZO/PMX 3.375GM 50 ML IV SCH ×4 (02:19→21:07)
[2016-10-21] MEDS: NYSTATIN 500,000 UNITS/5 ML UDC PO SCH ×4 (05:02→21:05)
[2016-10-21 05:32] LABS: ASPARTATE AMINO TRANSFERASE 12 U/L (15-37); BLOOD UREA NITROGEN 7 mg/dL (7-18)
[2016-10-21 06:19] LABS: DIFF TOTAL CELLS COUNTED 25 CELL DIFFERENTIAL; VERIFY COUNTS? YES
[2016-10-21 06:20] LABS: OVALOCYTES 1+
[2016-10-21 07:30] VITALS: BP 130/72
[2016-10-21] MEDS: POLYETHYLENE GLYCOL 17 GM PACKET PO SCH (08:18)
[2016-10-21] MEDS: ACYCLOVIR 200 MG CAPSULE PO SCH ×2 (08:19→21:06)
[2016-10-21] MEDS: maalox/diphenh/lido/sucralfate 5 ML PO SCH ×3 (08:19→21:06)
[2016-10-21] MEDS: VANCOMYCIN 900 MG in SODIUM CHLORIDE 0.9% 100 ML IV SCH ×2 (10:37→22:30)
[2016-10-21] MEDS: SODIUM CHLORIDE 0.9% 1,000 ML IV SCH ×3 (10:38→22:30)
[2016-10-21] MEDS: FAMOTIDINE 20 MG/2 ML IVPush SCH ×2 (11:06→21:07)
[2016-10-21] MEDS: ONDANSETRON 2MG/ML, 2ML IVPush PRN ×2 (11:07→16:26)
[2016-10-21 13:42] VITALS: BP 150/75
[2016-10-21] MEDS: MICAFUNGIN 100 MG in SODIUM CHLORIDE 0.9% 100 ML IV SCH (16:26)
[2016-10-21 19:35] VITALS: BP 156/72
[2016-10-21] MEDS: PAROXETINE 10 MG TABLET PO SCH (22:29)
[2016-10-21] MEDS: PROMETHAZINE 25MG TABLET PO PRN (22:40)
[2016-10-22] MEDS: PIPERACILLIN/TAZO/PMX 3.375GM 50 ML IV SCH ×4 (01:51→20:48)
[2016-10-22 03:05] VITALS: BP 158/79
[2016-10-22] MEDS: ACETAMINOPHEN 325 MG TABLET PO PRN ×3 (03:19→19:21)
[2016-10-22 03:49] LABS: ASPARTATE AMINO TRANSFERASE 17 U/L (15-37); BLOOD UREA NITROGEN 9 mg/dL (7-18)
[2016-10-22 04:23] LABS: DIFF TOTAL CELLS COUNTED 25 CELL DIFFERENTIAL; VERIFY COUNTS? YES
[2016-10-22 04:24] LABS: ANISOCYTOSIS 1+
[2016-10-22 04:25] LABS: OVALOCYTES 1+
[2016-10-22] MEDS: NYSTATIN 500,000 UNITS/5 ML UDC PO SCH ×4 (05:49→20:48)
[2016-10-22] MEDS ORDERED: POTASSIUM CHLORIDE 20 MEQ TAB.ER.PRT PO ONE (08:30)
[2016-10-22] MEDS: maalox/diphenh/lido/sucralfate 5 ML PO SCH ×3 (08:37→20:48)
[2016-10-22] MEDS: SODIUM CHLORIDE 0.9% 1,000 ML IV SCH ×2 (08:37→15:56)
[2016-10-22] MEDS: FAMOTIDINE 20 MG/2 ML IVPush SCH ×2 (08:37→20:48)
[2016-10-22] MEDS: ACYCLOVIR 200 MG CAPSULE PO SCH ×2 (08:38→20:48)
[2016-10-22] MEDS: LISINOPRIL 10 MG TABLET PO SCH (08:39)
[2016-10-22] MEDS: POLYETHYLENE GLYCOL 17 GM PACKET PO SCH (08:39)
[2016-10-22 09:00] VITALS: BP 117/59
[2016-10-22] MEDS: MICAFUNGIN 100 MG in SODIUM CHLORIDE 0.9% 100 ML IV SCH (10:48)
[2016-10-22] MEDS: ONDANSETRON 2MG/ML, 2ML IVPush PRN ×2 (10:48→15:56)
[2016-10-22] MEDS: VANCOMYCIN 900 MG in SODIUM CHLORIDE 0.9% 100 ML IV SCH ×2 (11:03→22:33)
[2016-10-22 14:35] VITALS: BP 163/78
[2016-10-22 20:05] VITALS: BP 142/72
[2016-10-22] MEDS: PAROXETINE 10 MG TABLET PO SCH (22:33)
[2016-10-22] MEDS: PROMETHAZINE 25MG TABLET PO PRN (23:05)
[2016-10-23] MEDS: SODIUM CHLORIDE 0.9% 1,000 ML IV SCH ×3 (02:18→22:59)
[2016-10-23] MEDS: PIPERACILLIN/TAZO/PMX 3.375GM 50 ML IV SCH ×4 (02:18→20:19)
[2016-10-23 04:21] VITALS: BP 151/82
[2016-10-23 05:13] LABS: ASPARTATE AMINO TRANSFERASE 15 U/L (15-37); BLOOD UREA NITROGEN 8 mg/dL (7-18)
[2016-10-23] MEDS: NYSTATIN 500,000 UNITS/5 ML UDC PO SCH ×4 (05:48→20:20)
[2016-10-23 06:27] LABS: DIFF TOTAL CELLS COUNTED 25 CELL DIFFERENTIAL
[2016-10-23 06:29] LABS: ANISOCYTOSIS 1+; VERIFY COUNTS? YES
[2016-10-23 06:31] LABS: OVALOCYTES 1+
[2016-10-23 07:48] VITALS: BP 135/76
[2016-10-23] MEDS: LISINOPRIL 10 MG TABLET PO SCH (09:00)
[2016-10-23] MEDS ORDERED: POTASSIUM CHLORIDE 20 MEQ TAB.ER.PRT PO ONE (10:00)
[2016-10-23] MEDS: FAMOTIDINE 20 MG/2 ML IVPush SCH ×2 (10:34→20:19)
[2016-10-23] MEDS: POLYETHYLENE GLYCOL 17 GM PACKET PO SCH (10:34)
[2016-10-23] MEDS: maalox/diphenh/lido/sucralfate 5 ML PO SCH ×3 (10:34→20:20)
[2016-10-23] MEDS: ACYCLOVIR 200 MG CAPSULE PO SCH ×2 (10:35→20:20)
[2016-10-23] MEDS: ONDANSETRON 2MG/ML, 2ML IVPush PRN ×3 (10:36→20:28)
[2016-10-23] MEDS: MICAFUNGIN 100 MG in SODIUM CHLORIDE 0.9% 100 ML IV SCH (11:32)
[2016-10-23 12:50] VITALS: BP 141/78
[2016-10-23] MEDS: VANCOMYCIN 900 MG in SODIUM CHLORIDE 0.9% 100 ML IV SCH ×2 (13:47→22:59)
[2016-10-23 18:47] VITALS: BP 140/78
[2016-10-23] MEDS: PAROXETINE 10 MG TABLET PO SCH (22:59)
[2016-10-23] MEDS: PROMETHAZINE 25MG TABLET PO PRN (23:26)
[2016-10-24] MEDS: PIPERACILLIN/TAZO/PMX 3.375GM 50 ML IV SCH ×4 (01:30→19:34)
[2016-10-24 02:23] VITALS: BP 129/69
[2016-10-24] MEDS: NYSTATIN 500,000 UNITS/5 ML UDC PO SCH ×4 (05:18→20:25)
[2016-10-24 06:12] LABS: ASPARTATE AMINO TRANSFERASE 17 U/L (15-37); BLOOD UREA NITROGEN 8 mg/dL (7-18)
[2016-10-24 06:52] VITALS: BP 131/64
[2016-10-24] MEDS: POLYETHYLENE GLYCOL 17 GM PACKET PO SCH (07:47)
[2016-10-24 07:55] LABS: DIFF TOTAL CELLS COUNTED 100 CELL DIFF
[2016-10-24 07:56] LABS: VERIFY COUNTS? YES
[2016-10-24] MEDS: SODIUM CHLORIDE 0.9% 1,000 ML IV SCH ×2 (07:56→14:40)
[2016-10-24] MEDS: FAMOTIDINE 20 MG/2 ML IVPush SCH ×2 (07:56→20:25)
[2016-10-24 07:58] LABS: ANISOCYTOSIS 1+
[2016-10-24] MEDS: ACYCLOVIR 200 MG CAPSULE PO SCH ×2 (07:58→20:25)
[2016-10-24] MEDS: LISINOPRIL 10 MG TABLET PO SCH (07:59)
[2016-10-24] MEDS: maalox/diphenh/lido/sucralfate 5 ML PO SCH ×3 (07:59→20:25)
[2016-10-24] MEDS: ONDANSETRON 2MG/ML, 2ML IVPush PRN ×2 (10:29→16:43)
[2016-10-24] MEDS ORDERED: DIPHENHYDRAMINE 25 MG CAPSULE PO ONE ×2 (10:30→22:00)
[2016-10-24] MEDS: VANCOMYCIN 900 MG in SODIUM CHLORIDE 0.9% 100 ML IV SCH (10:32)
[2016-10-24] MEDS: MICAFUNGIN 100 MG in SODIUM CHLORIDE 0.9% 100 ML IV SCH (11:56)
[2016-10-24 13:56] VITALS: BP 131/67
[2016-10-24] MEDS: ACETAMINOPHEN 325 MG TABLET PO PRN (16:57)
[2016-10-24] MEDS ORDERED: methylPREDNISolone SOD SUCC 40 MG/ML IV ONE (18:30)
[2016-10-24 20:09] VITALS: BP 135/71
[2016-10-24] MEDS: PAROXETINE 10 MG TABLET PO SCH (23:11)
[2016-10-25] MEDS: PIPERACILLIN/TAZO/PMX 3.375GM 50 ML IV SCH ×4 (01:10→20:02)
[2016-10-25] MEDS: SODIUM CHLORIDE 0.9% 1,000 ML IV SCH ×2 (01:10→12:08)
[2016-10-25 02:32] VITALS: BP 135/65
[2016-10-25] MEDS ORDERED: DIPHENHYDRAMINE 25 MG CAPSULE PO ONE (05:00)
[2016-10-25] MEDS: NYSTATIN 500,000 UNITS/5 ML UDC PO SCH ×4 (05:06→20:40)
[2016-10-25 06:21] LABS: ASPARTATE AMINO TRANSFERASE 16 U/L (15-37); BLOOD UREA NITROGEN 12 mg/dL (7-18)
[2016-10-25 06:35] LABS: DIFF TOTAL CELLS COUNTED 100 CELL DIFF
[2016-10-25 06:41] LABS: VERIFY COUNTS? YES
[2016-10-25 06:43] LABS: ANISOCYTOSIS 1+
[2016-10-25 08:17] VITALS: BP 147/73
[2016-10-25] MEDS: LISINOPRIL 10 MG TABLET PO SCH (08:35)
[2016-10-25] MEDS: ACYCLOVIR 200 MG CAPSULE PO SCH ×2 (08:35→20:41)
[2016-10-25] MEDS: POLYETHYLENE GLYCOL 17 GM PACKET PO SCH (08:35)
[2016-10-25] MEDS: maalox/diphenh/lido/sucralfate 5 ML PO SCH ×3 (08:35→20:41)
[2016-10-25] MEDS: FAMOTIDINE 20 MG/2 ML IVPush SCH ×2 (08:35→20:40)
[2016-10-25] MEDS: ONDANSETRON 2MG/ML, 2ML IVPush PRN ×3 (10:54→20:40)
[2016-10-25] MEDS: DIPHENHYDRAMINE 25 MG CAPSULE PO PRN (12:09)
[2016-10-25] MEDS: LOPERAMIDE 2 MG CAPSULE PO PRN ×2 (12:09→16:28)
[2016-10-25] MEDS: MICAFUNGIN 100 MG in SODIUM CHLORIDE 0.9% 100 ML IV SCH (12:42)
[2016-10-25 14:43] VITALS: BP 147/77
[2016-10-25] MEDS ORDERED: methylPREDNISolone SOD SUCC 125 MG/2 ML IVPush ONE (16:30)
[2016-10-25] MEDS: PAROXETINE 10 MG TABLET PO SCH (20:41)
[2016-10-25 20:51] VITALS: BP 139/75
[2016-10-26] VITALS (7 sets, daily range): BP systolic 122–164; BP diastolic 62–76
[2016-10-26] MEDS: SODIUM CHLORIDE 0.9% 1,000 ML IV SCH ×3 (00:37→20:48)
[2016-10-26 03:43] LABS: ASPARTATE AMINO TRANSFERASE 18 U/L (15-37); BLOOD UREA NITROGEN 12 mg/dL (7-18)
[2016-10-26 03:46] LABS: DIFF TOTAL CELLS COUNTED 100 CELL DIFF
[2016-10-26 04:12] LABS: ANISOCYTOSIS 1+; VERIFY COUNTS? YES
[2016-10-26] MEDS: NYSTATIN 500,000 UNITS/5 ML UDC PO SCH ×4 (06:01→20:49)
[2016-10-26] MEDS: POLYETHYLENE GLYCOL 17 GM PACKET PO SCH (08:15)
[2016-10-26] MEDS: maalox/diphenh/lido/sucralfate 5 ML PO SCH ×3 (08:15→20:49)
[2016-10-26] MEDS: ACYCLOVIR 200 MG CAPSULE PO SCH ×2 (08:15→20:49)
[2016-10-26] MEDS: FAMOTIDINE 20 MG/2 ML IVPush SCH ×2 (08:15→20:49)
[2016-10-26] MEDS: LISINOPRIL 10 MG TABLET PO SCH (08:16)
[2016-10-26] MEDS: ONDANSETRON 2MG/ML, 2ML IVPush PRN ×2 (10:44→16:10)
[2016-10-26] MEDS: DIPHENHYDRAMINE 25 MG CAPSULE PO PRN ×2 (10:44→20:48)
[2016-10-26] MEDS: MICAFUNGIN 100 MG in SODIUM CHLORIDE 0.9% 100 ML IV SCH (11:50)
[2016-10-26] MEDS: PAROXETINE 10 MG TABLET PO SCH (22:27)
[2016-10-27] MEDS: DIPHENHYDRAMINE 25 MG CAPSULE PO PRN ×3 (02:50→16:27)
[2016-10-27 03:01] VITALS: BP 144/66
[2016-10-27 03:20] LABS: ASPARTATE AMINO TRANSFERASE 18 U/L (15-37); BLOOD UREA NITROGEN 14 mg/dL (7-18)
[2016-10-27 03:29] LABS: DIFF TOTAL CELLS COUNTED 100 CELL DIFF
[2016-10-27 03:39] LABS: ANISOCYTOSIS 1+; VERIFY COUNTS? YES
[2016-10-27] MEDS: SODIUM CHLORIDE 0.9% 1,000 ML IV SCH ×2 (06:06→16:27)
[2016-10-27] MEDS: NYSTATIN 500,000 UNITS/5 ML UDC PO SCH ×4 (06:06→20:46)
[2016-10-27 06:59] VITALS: BP 127/69
[2016-10-27] MEDS: maalox/diphenh/lido/sucralfate 5 ML PO SCH ×4 (07:36→21:00)
[2016-10-27] MEDS: FAMOTIDINE 20 MG/2 ML IVPush SCH ×2 (07:37→20:46)
[2016-10-27] MEDS: ACYCLOVIR 200 MG CAPSULE PO SCH ×2 (07:37→20:46)
[2016-10-27] MEDS: POLYETHYLENE GLYCOL 17 GM PACKET PO SCH (07:38)
[2016-10-27] MEDS: LISINOPRIL 10 MG TABLET PO SCH (07:38)
[2016-10-27] MEDS: ONDANSETRON 2MG/ML, 2ML IVPush PRN ×3 (10:34→20:46)
[2016-10-27] MEDS: POTASSIUM CHLORIDE 20 MEQ TAB.ER.PRT PO SCH ×2 (10:34→20:46)
[2016-10-27] MEDS: MICAFUNGIN 100 MG in SODIUM CHLORIDE 0.9% 100 ML IV SCH (10:35)
[2016-10-27] MEDS: ACETAMINOPHEN 325 MG TABLET PO PRN (12:23)
[2016-10-27 13:25] VITALS: BP 149/65
[2016-10-27 20:54] VITALS: BP 144/72
[2016-10-27] MEDS: LOPERAMIDE 2 MG CAPSULE PO PRN (22:22)
[2016-10-27] MEDS: PAROXETINE 10 MG TABLET PO SCH (22:22)
[2016-10-28] MEDS: DIPHENHYDRAMINE 25 MG CAPSULE PO PRN ×3 (00:40→18:21)
[2016-10-28] MEDS: SODIUM CHLORIDE 0.9% 1,000 ML IV SCH ×3 (01:29→22:21)
[2016-10-28 03:23] VITALS: BP 134/65
[2016-10-28 04:01] LABS: ASPARTATE AMINO TRANSFERASE 18 U/L (15-37); BLOOD UREA NITROGEN 11 mg/dL (7-18)
[2016-10-28 04:04] LABS: DIFF TOTAL CELLS COUNTED 100 CELL DIFF
[2016-10-28 04:17] LABS: ANISOCYTOSIS 1+; VERIFY COUNTS? YES
[2016-10-28] MEDS: NYSTATIN 500,000 UNITS/5 ML UDC PO SCH ×4 (06:03→21:15)
[2016-10-28] MEDS: ACETAMINOPHEN 325 MG TABLET PO PRN (06:09)
[2016-10-28 07:34] VITALS: BP 142/65
[2016-10-28] MEDS: FAMOTIDINE 20 MG/2 ML IVPush SCH (08:40)
[2016-10-28] MEDS: POLYETHYLENE GLYCOL 17 GM PACKET PO SCH (08:40)
[2016-10-28] MEDS: maalox/diphenh/lido/sucralfate 5 ML PO SCH ×3 (08:40→21:15)
[2016-10-28] MEDS: POTASSIUM CHLORIDE 20 MEQ TAB.ER.PRT PO SCH ×2 (08:40→21:16)
[2016-10-28] MEDS: LISINOPRIL 10 MG TABLET PO SCH (08:41)
[2016-10-28] MEDS: ACYCLOVIR 200 MG CAPSULE PO SCH ×2 (08:41→21:16)
[2016-10-28] MEDS: MICAFUNGIN 100 MG in SODIUM CHLORIDE 0.9% 100 ML IV SCH (11:47)
[2016-10-28] MEDS ORDERED: DIPHENHYDRAMINE 50 MG/ML, 1ML IVPush ONE (12:00)
[2016-10-28] MEDS: LOPERAMIDE 2 MG CAPSULE PO PRN ×2 (12:21→18:25)
[2016-10-28 13:34] VITALS: BP 136/67
[2016-10-28] MEDS: ONDANSETRON 2MG/ML, 2ML IVPush PRN (17:03)
[2016-10-28 21:17] VITALS: BP 142/61
[2016-10-28] MEDS: FAMOTIDINE 20 MG TABLET PO SCH (21:21)
[2016-10-28] MEDS ORDERED: HYDROCORTISONE 100 MG INJ. IVPush ONE (21:30)
[2016-10-28] MEDS: PAROXETINE 10 MG TABLET PO SCH (22:20)
[2016-10-29] MEDS: DIPHENHYDRAMINE 25 MG CAPSULE PO PRN ×5 (00:33→21:14)
[2016-10-29 00:35] VITALS: BP 127/61
[2016-10-29] MEDS: NYSTATIN 500,000 UNITS/5 ML UDC PO SCH ×2 (04:37→11:00)
[2016-10-29 04:57] LABS: BLOOD UREA NITROGEN 8 mg/dL (7-18)
[2016-10-29 05:00] LABS: ASPARTATE AMINO TRANSFERASE 11 U/L (15-37)
[2016-10-29 05:14] LABS: DIFF TOTAL CELLS COUNTED 100 CELL DIFF
[2016-10-29 05:18] LABS: ANISOCYTOSIS 1+; VERIFY COUNTS? YES
[2016-10-29 07:30] VITALS: BP 145/67
[2016-10-29] MEDS: ACYCLOVIR 200 MG CAPSULE PO SCH ×2 (08:40→21:15)
[2016-10-29] MEDS: SODIUM CHLORIDE 0.9% 1,000 ML IV SCH ×2 (08:40→21:15)
[2016-10-29] MEDS: maalox/diphenh/lido/sucralfate 5 ML PO SCH (08:41)
[2016-10-29] MEDS: FAMOTIDINE 20 MG TABLET PO SCH ×2 (08:41→21:14)
[2016-10-29] MEDS: LISINOPRIL 10 MG TABLET PO SCH (08:41)
[2016-10-29] MEDS: POTASSIUM CHLORIDE 20 MEQ TAB.ER.PRT PO SCH ×2 (08:41→21:14)
[2016-10-29] MEDS: POLYETHYLENE GLYCOL 17 GM PACKET PO SCH (08:41)
[2016-10-29 14:29] VITALS: BP 134/55
[2016-10-29] MEDS: CETIRIZINE 10 MG TABLET PO SCH (15:55)
[2016-10-29] MEDS ORDERED: HYDROCORTISONE CRM 0.025, 30GM RC PRN (16:00)
[2016-10-29] MEDS ORDERED: maalox/diphenh/lido/sucralfate 5 ML PO PRN (17:00)
[2016-10-29] MEDS ORDERED: NYSTATIN 500,000 UNITS/5 ML UDC PO PRN (17:00)
[2016-10-29] MEDS: hydrOXyzine 10MG TABLET PO PRN (18:02)
[2016-10-29 19:39] VITALS: BP 143/61
[2016-10-29] MEDS: PAROXETINE 10 MG TABLET PO SCH (21:14)
[2016-10-30] MEDS: hydrOXyzine 10MG TABLET PO PRN ×4 (00:25→21:54)
[2016-10-30 02:50] VITALS: BP 127/57
[2016-10-30] MEDS: DIPHENHYDRAMINE 25 MG CAPSULE PO PRN ×3 (03:35→17:02)
[2016-10-30] MEDS: SODIUM CHLORIDE 0.9% 1,000 ML IV SCH ×2 (03:36→13:39)
[2016-10-30 05:10] LABS: DIFF TOTAL CELLS COUNTED 100 CELL DIFF
[2016-10-30 05:18] LABS: ANISOCYTOSIS 1+; POLYCHROMASIA 1+; VERIFY COUNTS? YES
[2016-10-30] MEDS: CETIRIZINE 10 MG TABLET PO SCH (07:59)
[2016-10-30] MEDS: ACYCLOVIR 200 MG CAPSULE PO SCH ×2 (07:59→20:25)
[2016-10-30] MEDS: POTASSIUM CHLORIDE 20 MEQ TAB.ER.PRT PO SCH ×2 (07:59→20:25)
[2016-10-30] MEDS: POLYETHYLENE GLYCOL 17 GM PACKET PO SCH (08:00)
[2016-10-30] MEDS: FAMOTIDINE 20 MG TABLET PO SCH ×2 (08:00→21:54)
[2016-10-30 08:20] VITALS: BP 143/73
[2016-10-30] MEDS ORDERED: methylPREDNISolone SOD SUCC 125 MG/2 ML IVPush ONE (12:30)
[2016-10-30 13:56] VITALS: BP 129/71
[2016-10-30] MEDS ORDERED: MAGNESIUM SULFATE PMX 2GM/50ML 50 ML IV ONE (17:00)
[2016-10-30] MEDS: methylPREDNISolone SOD SUCC 125 MG/2 ML IVPush SCH ×2 (18:00→23:31)
[2016-10-30 19:20] VITALS: BP 143/70
[2016-10-30] MEDS: PAROXETINE 10 MG TABLET PO SCH (23:31)
[2016-10-31 02:00] VITALS: BP 132/70
[2016-10-31] MEDS: SODIUM CHLORIDE 0.9% 1,000 ML IV SCH ×3 (02:05→21:26)
[2016-10-31] MEDS: DIPHENHYDRAMINE 25 MG CAPSULE PO PRN ×2 (02:05→08:03)
[2016-10-31 02:40] LABS: BLOOD UREA NITROGEN 9 mg/dL (7-18); DIFF TOTAL CELLS COUNTED 100 CELL DIFF
[2016-10-31 02:55] LABS: VERIFY COUNTS? YES
[2016-10-31 02:57] LABS: ANISOCYTOSIS 1+
[2016-10-31] MEDS: methylPREDNISolone SOD SUCC 125 MG/2 ML IVPush SCH ×5 (04:34→23:27)
[2016-10-31] MEDS: hydrOXyzine 10MG TABLET PO PRN ×3 (04:34→21:23)
[2016-10-31] MEDS: POTASSIUM CHLORIDE 20 MEQ TAB.ER.PRT PO SCH ×2 (08:03→21:23)
[2016-10-31] MEDS: FAMOTIDINE 20 MG TABLET PO SCH ×2 (08:03→21:26)
[2016-10-31] MEDS: CETIRIZINE 10 MG TABLET PO SCH (08:03)
[2016-10-31] MEDS: ACYCLOVIR 200 MG CAPSULE PO SCH ×2 (08:03→21:23)
[2016-10-31] MEDS: POLYETHYLENE GLYCOL 17 GM PACKET PO SCH ×2 (08:03→17:33)
[2016-10-31 08:06] VITALS: BP 138/71
[2016-10-31 14:56] VITALS: BP 146/75
[2016-10-31 20:40] VITALS: BP 171/87
[2016-10-31] MEDS: PAROXETINE 10 MG TABLET PO SCH (23:24)
[2016-11-01] VITALS (7 sets, daily range): BP systolic 139–185; BP diastolic 58–143
[2016-11-01] MEDS: DIPHENHYDRAMINE 25 MG CAPSULE PO PRN ×2 (02:51→10:51)
[2016-11-01 06:04] LABS: DIFF TOTAL CELLS COUNTED 100 CELL DIFF
[2016-11-01 06:07] LABS: VERIFY COUNTS? YES
[2016-11-01 06:08] LABS: ANISOCYTOSIS 1+; POLYCHROMASIA 1+
[2016-11-01] MEDS: methylPREDNISolone SOD SUCC 125 MG/2 ML IVPush SCH ×4 (06:21→17:39)
[2016-11-01] MEDS: hydrOXyzine 10MG TABLET PO PRN ×3 (06:30→23:33)
[2016-11-01] MEDS: CETIRIZINE 10 MG TABLET PO SCH (09:29)
[2016-11-01] MEDS: POTASSIUM CHLORIDE 20 MEQ TAB.ER.PRT PO SCH ×2 (09:29→19:53)
[2016-11-01] MEDS: FAMOTIDINE 20 MG TABLET PO SCH ×2 (09:31→19:53)
[2016-11-01] MEDS: ACYCLOVIR 200 MG CAPSULE PO SCH ×2 (09:31→19:53)
[2016-11-01] MEDS: SODIUM CHLORIDE 0.9% 1,000 ML IV SCH ×2 (10:49→17:30)
[2016-11-01] MEDS: HYDROCORTISONE 100 MG INJ. IVPush PRN (12:48)
[2016-11-01] MEDS ORDERED: AMLODIPINE 5 MG TABLET PO SCH (18:00)
[2016-11-01] MEDS: PAROXETINE 10 MG TABLET PO SCH (22:34)
[2016-11-02] MEDS: SODIUM CHLORIDE 0.9% 1,000 ML IV SCH (01:35)
[2016-11-02 02:45] VITALS: BP 158/74
[2016-11-02] MEDS: DIPHENHYDRAMINE 25 MG CAPSULE PO PRN ×2 (04:10→23:53)
[2016-11-02 07:15] VITALS: BP 182/83
[2016-11-02] MEDS ORDERED: hydrALAzine 20 MG/ML, 1ML IV PRN (08:30)
[2016-11-02 08:49] VITALS: BP 163/81
[2016-11-02] MEDS ORDERED: MAALOX/HYOSCYAMINE/LIDOCAINE 45 ML BOTTLE PO ONE (09:00)
[2016-11-02] MEDS: ACYCLOVIR 200 MG CAPSULE PO SCH (09:00)
[2016-11-02] MEDS: POLYETHYLENE GLYCOL 17 GM PACKET PO SCH (09:00)
[2016-11-02 09:56] LABS: IS PT STATUS REG ER OR PRE ER? NO
[2016-11-02] MEDS ORDERED: OMNIPAQUE 350 MG/ML, 75ML BOTTLE ONE (10:27)
[2016-11-02] MEDS ORDERED: LIDOCAINE 1%, 20ML ONE (10:35)
[2016-11-02] MEDS ORDERED: FENTANYL PF 100 MCG/2ML ONE (10:49)
[2016-11-02] MEDS ORDERED: MIDAZOLAM 1 MG/ML, 5ML ONE (10:49)
[2016-11-02] MEDS: POTASSIUM CHLORIDE 20 MEQ TAB.ER.PRT PO SCH ×2 (13:09→19:34)
[2016-11-02] MEDS: CETIRIZINE 10 MG TABLET PO SCH (13:10)
[2016-11-02] MEDS: AMLODIPINE 5 MG TABLET PO SCH ×2 (13:10→23:09)
[2016-11-02] MEDS: FAMOTIDINE 20 MG TABLET PO SCH ×2 (13:11→19:34)
[2016-11-02 13:50] VITALS: BP 153/80
[2016-11-02] MEDS ORDERED: predniSONE 50MG TABLET PO SCH (19:00)
[2016-11-02 19:33] VITALS: BP 146/65
[2016-11-02] MEDS: hydrOXyzine 10MG TABLET PO PRN (19:34)
[2016-11-02] MEDS: PAROXETINE 10 MG TABLET PO SCH (23:09)
[2016-11-03 02:11] VITALS: BP 133/71
[2016-11-03 02:41] LABS: ASPARTATE AMINO TRANSFERASE 20 U/L (15-37); BLOOD UREA NITROGEN 16 mg/dL (7-18)
[2016-11-03 07:35] VITALS: BP 161/72
[2016-11-03] MEDS ORDERED: PRED50TA PO (08:28)
[2016-11-03] MEDS ORDERED: PARO10TA3 PO (08:28)
[2016-11-03] MEDS ORDERED: ALPR-475 PO (08:28)
[2016-11-03] MEDS ORDERED: CETI10TA18 PO (08:28)
[2016-11-03] MEDS ORDERED: AMLO5TAB2 PO (08:28)
[2016-11-03] MEDS ORDERED: HYDR10TA4 PO (08:28)
[2016-11-03] MEDS: POLYETHYLENE GLYCOL 17 GM PACKET PO SCH (09:00)
[2016-11-03] MEDS: CETIRIZINE 10 MG TABLET PO SCH (10:10)
[2016-11-03] MEDS: AMLODIPINE 5 MG TABLET PO SCH (10:10)
[2016-11-03] MEDS: FAMOTIDINE 20 MG TABLET PO SCH (10:10)
[2016-11-03] MEDS: POTASSIUM CHLORIDE 20 MEQ TAB.ER.PRT PO SCH (10:10)
[2016-11-03] MEDS ORDERED: ONDA4TAB7 PO (12:31)
[2016-11-03] MEDS ORDERED: HYDR-3138 PO (12:32)
[2016-11-03 13:37] VITALS: BP 156/83
== END 2016-11-03 16:19 | disposition home or self-care (01) | DRG 834 ==
LOC: 3NW 15:34
PROVIDERS: ADMIT Internal Medicine Hematology & Oncology; ATTEND Family Medicine
PROC: 07DR3ZX Extraction of Iliac Bone Marrow, Percutaneous Approach, Diagnostic (ICD-10-PCS; 2016-09-29)
PROC: 02HV33Z Insertion of Infusion Device into Superior Vena Cava, Percutaneous Approach (ICD-10-PCS; 2016-09-29)
PROC: B5181ZA Fluoroscopy of Superior Vena Cava using Low Osmolar Contrast, Guidance (ICD-10-PCS; 2016-09-29)
PROC: 30233R1 Transfusion of Nonautologous Platelets into Peripheral Vein, Percutaneous Approach (ICD-10-PCS; 2016-09-30)
PROC: 3E03305 Introduction of Other Antineoplastic into Peripheral Vein, Percutaneous Approach (ICD-10-PCS; 2016-10-02)
PROC: 30233N1 Transfusion of Nonautologous Red Blood Cells into Peripheral Vein, Percutaneous Approach (ICD-10-PCS; 2016-10-03)
PROC: 30233R1 Transfusion of Nonautologous Platelets into Peripheral Vein, Percutaneous Approach (ICD-10-PCS; 2016-10-07)
PROC: 30233N1 Transfusion of Nonautologous Red Blood Cells into Peripheral Vein, Percutaneous Approach (ICD-10-PCS; 2016-10-07)
PROC: 30233R1 Transfusion of Nonautologous Platelets into Peripheral Vein, Percutaneous Approach (ICD-10-PCS; 2016-10-12)
PROC: 30233N1 Transfusion of Nonautologous Red Blood Cells into Peripheral Vein, Percutaneous Approach (ICD-10-PCS; 2016-10-13)
PROC: 30233N1 Transfusion of Nonautologous Red Blood Cells into Peripheral Vein, Percutaneous Approach (ICD-10-PCS; 2016-10-15)
PROC: 0QB23ZX Excision of Right Pelvic Bone, Percutaneous Approach, Diagnostic (ICD-10-PCS; principal; 2016-10-16)
PROC: 07DR3ZX Extraction of Iliac Bone Marrow, Percutaneous Approach, Diagnostic (ICD-10-PCS; 2016-10-16)
PROC: 30233R1 Transfusion of Nonautologous Platelets into Peripheral Vein, Percutaneous Approach (ICD-10-PCS; 2016-10-16)
PROC: 30233R1 Transfusion of Nonautologous Platelets into Peripheral Vein, Percutaneous Approach (ICD-10-PCS; 2016-10-20)
PROC: 30233N1 Transfusion of Nonautologous Red Blood Cells into Peripheral Vein, Percutaneous Approach (ICD-10-PCS; 2016-10-26)
PROC: 30233N1 Transfusion of Nonautologous Red Blood Cells into Peripheral Vein, Percutaneous Approach (ICD-10-PCS; 2016-10-30)
PROC: 30233N1 Transfusion of Nonautologous Red Blood Cells into Peripheral Vein, Percutaneous Approach (ICD-10-PCS; 2016-11-01)
PROC: 0QB33ZX Excision of Left Pelvic Bone, Percutaneous Approach, Diagnostic (ICD-10-PCS; 2016-11-02)
PROC: 07DR3ZX Extraction of Iliac Bone Marrow, Percutaneous Approach, Diagnostic (ICD-10-PCS; 2016-11-02)
DX: C92.00 Acute myeloblastic leukemia, not having achieved remission (principal); D61.810 Antineoplastic chemotherapy induced pancytopenia; B37.0 Candidal stomatitis; R65.10 Systemic inflammatory response syndrome (SIRS) of non-infectious origin without acute organ dysfunction; Z51.11 Encounter for antineoplastic chemotherapy; C92.50 Acute myelomonocytic leukemia, not having achieved remission; A60.00 Herpesviral infection of urogenital system, unspecified; B02.9 Zoster without complications; D69.2 Other nonthrombocytopenic purpura; E87.6 Hypokalemia; F32.9 Major depressive disorder, single episode, unspecified; F42.9 Obsessive-compulsive disorder, unspecified; G89.29 Other chronic pain; I10 Essential (primary) hypertension; K12.30 Oral mucositis (ulcerative), unspecified; K21.9 Gastro-esophageal reflux disease without esophagitis; K59.00 Constipation, unspecified; L27.0 Generalized skin eruption due to drugs and medicaments taken internally; L29.9 Pruritus, unspecified; R13.10 Dysphagia, unspecified; R32 Unspecified urinary incontinence; M25.519 Pain in unspecified shoulder; R50.81 Fever presenting with conditions classified elsewhere; T45.1X5A Adverse effect of antineoplastic and immunosuppressive drugs, initial encounter; Z79.899 Other long term (current) drug therapy; Z82.0 Family history of epilepsy and other diseases of the nervous system; Y92.89 Other specified places as the place of occurrence of the external cause; Z88.1 Allergy status to other antibiotic agents; Z88.8 Allergy status to other drugs, medicaments and biological substances
CPT/HCPCS: 36415; 36569; 71010; 71020; 71275; 76937; 77001; 77012; 80048; 80053; 80202; 81003; 82040; 82607; 82746; 83540; 83550; 83615; 83690; 83735; 84100; 84484; 84550; 85025; 85097; 85379; 85384; 85610; 85651; 85730; 86140; 86644; 86645; 86703; 86704; 86706; 86708; 86803; 86850; 86900; 86920; 86923; 87040; 87324; 87340; 87497; 87899; 88237; 88264; 88280; 88305; 88311; 88313; 88341; 88342; 88360; 93005; 93306; 99156; 99157; G0364; J1100; J2248; J2250; J2405; J2543; J3010; J3370; J3480; J3490; J9100; J9211; Q0169; Q9967; C1751; G0435; G0461; J1200; J1720; J1940; J2310; J2920; J2930; J3475; J7030; J7040; J7050; J7512; P9016; P9037; P9040; Q0163; S0028

== ENCOUNTER 2016-11-23 08:00 | Inpatient (IN) | payer OTHER ==
[~2016-11-23] VITALS: Ht 167.6 cm; Wt 68.0 kg
[~2016-11-23 08:00] MED LIST: ALPR-475 PO; AMLO5TAB2 PO; CETI10TA18 PO; HYDR-3138 PO; HYDR10TA4 PO; ONDA4TAB7 PO; PARO10TA3 PO; PRED50TA PO
[2016-11-24 10:48] VITALS: BP 158/80
[2016-11-24] MEDS ORDERED: HYDR12.58 PO (11:03)
[2016-11-24] MEDS ORDERED: TEMA15CA PO (11:03)
[2016-11-24 11:28] LABS: HEMATOCRIT 36.7 % (34.6-47.8); HEMOGLOBIN 12.5 g/dL (11.7-16.4); WHITE BLOOD COUNT 6.9 x10^3/uL (3.4-10)
[2016-11-24 11:41] LABS: BLOOD UREA NITROGEN 22 mg/dL (7-18)
[2016-11-24 11:53] LABS: ASPARTATE AMINO TRANSFERASE 30 U/L (15-37)
[2016-11-24] MEDS ORDERED: D5%-0.45NACL+KCL 20MEQ 1,000 ML IV SCH (13:00)
[2016-11-24] MEDS ORDERED: SODIUM CHLORIDE 0.9% 1,000ML IV ONE (13:30)
[2016-11-24] MEDS: predniSOLONE OPHTH SUSP 1%, 5ML EACHEYE SCH ×3 (13:57→20:53)
[2016-11-24] MEDS ORDERED: PROCHLORPERAZINE 10MG TABLET PO PRN (14:00)
[2016-11-24] MEDS ORDERED: BISACODYL 5 MG EC TABLET PO PRN (14:00)
[2016-11-24] MEDS ORDERED: CETIRIZINE 10 MG TABLET PO PRN (14:00)
[2016-11-24] MEDS ORDERED: hydrOXyzine 10MG TABLET PO PRN (14:00)
[2016-11-24] MEDS ORDERED: PROCHLORPERAZINE 25 MG SUPP PR PRN (14:00)
[2016-11-24] MEDS ORDERED: PROCHLORPERAZINE 5 MG/ML, 2ML IVPush PRN (14:00)
[2016-11-24] MEDS ORDERED: HYDROcodone/APAP 5/325 TABLET PO PRN (14:00)
[2016-11-24] MEDS ORDERED: SODIUM CHLORIDE 0.9% IV SCH ×2 (16:00)
[2016-11-24] MEDS ORDERED: CYTARABINE IV SCH ×2 (16:00)
[2016-11-24] MEDS: ONDANSETRON 16 MG, DEXAMETHASONE 12 MG in SODIUM CHLORIDE 0.9% 50 ML IVPB SCH (16:16)
[2016-11-24 16:45] VITALS: BP 130/75
[2016-11-24] MEDS: SODIUM CHLORIDE 0.9% IV SCH (17:15)
[2016-11-24] MEDS: CYTARABINE IV SCH (17:15)
[2016-11-24] MEDS: SODIUM CHLORIDE 0.9% 1,000 ML IV SCH (17:30)
[2016-11-24 20:24] VITALS: BP 111/66
[2016-11-24] MEDS: SENNA/DOCUSATE TABLET PO SCH (20:52)
[2016-11-24] MEDS: AMLODIPINE 5 MG TABLET PO SCH (20:52)
[2016-11-24] MEDS: PAROXETINE 10 MG TABLET PO SCH (22:41)
[2016-11-24] MEDS: TEMAZEPAM 15 MG CAPSULE PO PRN (22:41)
[2016-11-25 03:52] VITALS: BP 126/74
[2016-11-25] MEDS ORDERED: CYTARABINE IV SCH ×2 (04:00)
[2016-11-25] MEDS ORDERED: SODIUM CHLORIDE 0.9% IV SCH ×2 (04:00)
[2016-11-25] MEDS: ONDANSETRON 16 MG, DEXAMETHASONE 12 MG in SODIUM CHLORIDE 0.9% 50 ML IVPB SCH (04:27)
[2016-11-25 04:59] LABS: HEMOGLOBIN 11.2 g/dL (11.7-16.4); WHITE BLOOD COUNT 4.8 x10^3/uL (3.4-10)
[2016-11-25 05:00] LABS: BLOOD UREA NITROGEN 20 mg/dL (7-18)
[2016-11-25 05:04] LABS: ASPARTATE AMINO TRANSFERASE 21 U/L (15-37)
[2016-11-25] MEDS: CYTARABINE IV SCH ×2 (05:14→05:45)
[2016-11-25] MEDS: SODIUM CHLORIDE 0.9% IV SCH ×2 (05:14→05:45)
[2016-11-25] MEDS: predniSOLONE OPHTH SUSP 1%, 5ML EACHEYE SCH ×4 (05:22→20:39)
[2016-11-25 07:36] VITALS: BP 118/79
[2016-11-25] MEDS: AMLODIPINE 5 MG TABLET PO SCH ×2 (07:44→20:40)
[2016-11-25] MEDS: HYDROCHLOROTHIAZIDE 12.5 MG CAPSULE PO SCH (07:44)
[2016-11-25] MEDS: SENNA/DOCUSATE TABLET PO SCH ×2 (07:44→20:40)
[2016-11-25] MEDS ORDERED: PAROXETINE 10 MG TABLET PO SCH (09:00)
[2016-11-25] MEDS: SODIUM CHLORIDE 0.9% 1,000 ML IV SCH ×2 (10:23→22:28)
[2016-11-25 13:48] VITALS: BP 113/62
[2016-11-25] MEDS: ONDANSETRON 8 MG TABLET PO PRN ×2 (14:11→22:33)
[2016-11-25 19:43] VITALS: BP 121/68
[2016-11-25] MEDS: TEMAZEPAM 15 MG CAPSULE PO PRN (22:27)
[2016-11-25] MEDS: PAROXETINE 10 MG TABLET PO SCH (22:27)
[2016-11-26 04:30] VITALS: BP 124/64
[2016-11-26 04:49] LABS: HEMATOCRIT 28.8 % (34.6-47.8); HEMOGLOBIN 9.9 g/dL (11.7-16.4); WHITE BLOOD COUNT 7.4 x10^3/uL (3.4-10)
[2016-11-26 04:59] LABS: BLOOD UREA NITROGEN 20 mg/dL (7-18)
[2016-11-26 05:02] LABS: ASPARTATE AMINO TRANSFERASE 17 U/L (15-37)
[2016-11-26] MEDS: predniSOLONE OPHTH SUSP 1%, 5ML EACHEYE SCH ×4 (05:24→20:53)
[2016-11-26 07:27] VITALS: BP 113/63
[2016-11-26] MEDS: HYDROCHLOROTHIAZIDE 12.5 MG CAPSULE PO SCH (07:28)
[2016-11-26] MEDS: SENNA/DOCUSATE TABLET PO SCH ×2 (07:29→20:53)
[2016-11-26] MEDS: AMLODIPINE 5 MG TABLET PO SCH ×2 (07:29→20:53)
[2016-11-26] MEDS: ONDANSETRON 8 MG TABLET PO PRN (10:48)
[2016-11-26] MEDS: SODIUM CHLORIDE 0.9% 1,000 ML IV SCH (12:01)
[2016-11-26 13:39] VITALS: BP 122/68
[2016-11-26] MEDS: ONDANSETRON 16 MG, DEXAMETHASONE 12 MG in SODIUM CHLORIDE 0.9% 50 ML IVPB SCH (16:10)
[2016-11-26] MEDS: SODIUM CHLORIDE 0.9% IV SCH (16:52)
[2016-11-26] MEDS: CYTARABINE IV SCH (16:52)
[2016-11-26 19:35] VITALS: BP 130/69
[2016-11-26] MEDS: PAROXETINE 10 MG TABLET PO SCH (22:14)
[2016-11-26] MEDS: TEMAZEPAM 15 MG CAPSULE PO PRN (22:14)
[2016-11-27] MEDS: SODIUM CHLORIDE 0.9% 1,000 ML IV SCH ×2 (01:56→15:55)
[2016-11-27 02:26] VITALS: BP 127/68
[2016-11-27 05:25] LABS: HEMATOCRIT 30.9 % (34.6-47.8); HEMOGLOBIN 10.5 g/dL (11.7-16.4); WHITE BLOOD COUNT 4.9 x10^3/uL (3.4-10)
[2016-11-27 05:32] LABS: ASPARTATE AMINO TRANSFERASE 23 U/L (15-37); BLOOD UREA NITROGEN 17 mg/dL (7-18)
[2016-11-27] MEDS: SODIUM CHLORIDE 0.9% IV SCH (06:22)
[2016-11-27] MEDS: CYTARABINE IV SCH (06:22)
[2016-11-27] MEDS: predniSOLONE OPHTH SUSP 1%, 5ML EACHEYE SCH ×4 (06:23→19:50)
[2016-11-27 06:49] VITALS: BP 142/77
[2016-11-27] MEDS: HYDROCHLOROTHIAZIDE 12.5 MG CAPSULE PO SCH (08:31)
[2016-11-27] MEDS: AMLODIPINE 5 MG TABLET PO SCH ×2 (08:31→19:50)
[2016-11-27] MEDS: SENNA/DOCUSATE TABLET PO SCH ×3 (08:31→19:51)
[2016-11-27 13:47] VITALS: BP 119/66
[2016-11-27 18:52] VITALS: BP 145/74
[2016-11-27] MEDS: ONDANSETRON 8 MG TABLET PO PRN (19:50)
[2016-11-27] MEDS: PAROXETINE 10 MG TABLET PO SCH (22:19)
[2016-11-27] MEDS: TEMAZEPAM 15 MG CAPSULE PO PRN (22:20)
[2016-11-28 01:57] VITALS: BP 114/63
[2016-11-28 04:37] LABS: HEMOGLOBIN 9.8 g/dL (11.7-16.4); WHITE BLOOD COUNT 4.8 x10^3/uL (3.4-10)
[2016-11-28] MEDS: SODIUM CHLORIDE 0.9% 1,000 ML IV SCH (04:40)
[2016-11-28 04:51] LABS: BLOOD UREA NITROGEN 19 mg/dL (7-18)
[2016-11-28 04:54] LABS: ASPARTATE AMINO TRANSFERASE 20 U/L (15-37)
[2016-11-28] MEDS: predniSOLONE OPHTH SUSP 1%, 5ML EACHEYE SCH ×4 (05:12→20:11)
[2016-11-28 08:06] VITALS: BP 132/75
[2016-11-28] MEDS: HYDROCHLOROTHIAZIDE 12.5 MG CAPSULE PO SCH (08:14)
[2016-11-28] MEDS: SENNA/DOCUSATE TABLET PO SCH ×2 (08:14→20:12)
[2016-11-28] MEDS: AMLODIPINE 5 MG TABLET PO SCH ×2 (08:14→20:12)
[2016-11-28 13:12] VITALS: BP 122/76
[2016-11-28] MEDS: ONDANSETRON 8 MG TABLET PO PRN (13:12)
[2016-11-28] MEDS: ONDANSETRON 16 MG, DEXAMETHASONE 12 MG in SODIUM CHLORIDE 0.9% 50 ML IVPB SCH (16:03)
[2016-11-28] MEDS: SODIUM CHLORIDE 0.9% IV SCH (16:52)
[2016-11-28] MEDS: CYTARABINE IV SCH (16:52)
[2016-11-28] MEDS: NS + 20MEQ KCL 1,000 ML IV SCH (17:35)
[2016-11-28 20:10] VITALS: BP 111/71
[2016-11-28] MEDS: TEMAZEPAM 15 MG CAPSULE PO PRN (22:25)
[2016-11-28] MEDS: PAROXETINE 10 MG TABLET PO SCH (22:25)
[2016-11-29 01:37] VITALS: BP 117/75
[2016-11-29 04:20] LABS: HEMATOCRIT 31.6 % (34.6-47.8); HEMOGLOBIN 10.9 g/dL (11.7-16.4)
[2016-11-29 04:28] LABS: BLOOD UREA NITROGEN 20 mg/dL (7-18)
[2016-11-29 04:31] LABS: ASPARTATE AMINO TRANSFERASE 22 U/L (15-37)
[2016-11-29 04:54] LABS: WHITE BLOOD COUNT 1.5 x10^3/uL (3.4-10)
[2016-11-29] MEDS: CYTARABINE IV SCH (04:58)
[2016-11-29] MEDS: SODIUM CHLORIDE 0.9% IV SCH (04:58)
[2016-11-29] MEDS: predniSOLONE OPHTH SUSP 1%, 5ML EACHEYE SCH ×4 (04:59→20:20)
[2016-11-29 06:37] VITALS: BP 134/70
[2016-11-29] MEDS: HYDROCHLOROTHIAZIDE 12.5 MG CAPSULE PO SCH (08:16)
[2016-11-29] MEDS: AMLODIPINE 5 MG TABLET PO SCH ×2 (08:16→21:08)
[2016-11-29] MEDS: PAROXETINE 10 MG TABLET PO SCH ×2 (08:17→23:34)
[2016-11-29] MEDS: SENNA/DOCUSATE TABLET PO SCH ×2 (08:18→21:00)
[2016-11-29] MEDS: NS + 20MEQ KCL 1,000 ML IV SCH ×2 (10:00→22:30)
[2016-11-29] MEDS: ONDANSETRON 2MG/ML, 2ML IVPush PRN ×2 (12:12→20:19)
[2016-11-29 13:46] VITALS: BP 142/74
[2016-11-29 19:32] VITALS: BP 135/72
[2016-11-29] MEDS: TEMAZEPAM 15 MG CAPSULE PO PRN (23:34)
[2016-11-30 02:22] VITALS: BP 116/67
[2016-11-30] MEDS: predniSOLONE OPHTH SUSP 1%, 5ML EACHEYE SCH ×4 (05:35→20:52)
[2016-11-30 05:39] LABS: ASPARTATE AMINO TRANSFERASE 31 U/L (15-37); BLOOD UREA NITROGEN 21 mg/dL (7-18)
[2016-11-30 05:42] LABS: HEMATOCRIT 27.8 % (34.6-47.8); HEMOGLOBIN 9.6 g/dL (11.7-16.4)
[2016-11-30 05:45] LABS: WHITE BLOOD COUNT 1.8 x10^3/uL (3.4-10)
[2016-11-30 07:35] VITALS: BP 151/79
[2016-11-30] MEDS: AMLODIPINE 5 MG TABLET PO SCH ×2 (09:17→20:52)
[2016-11-30] MEDS: HYDROCHLOROTHIAZIDE 12.5 MG CAPSULE PO SCH (09:17)
[2016-11-30] MEDS: PAROXETINE 10 MG TABLET PO SCH ×2 (09:17→22:36)
[2016-11-30] MEDS: SENNA/DOCUSATE TABLET PO SCH ×2 (09:17→21:00)
[2016-11-30] MEDS ORDERED: TBO-FILGRASTIM 300 MCG/0.5 ML SQ ONE ×2 (10:00)
[2016-11-30 14:30] VITALS: BP 116/71
[2016-11-30] MEDS: NS + 20MEQ KCL 1,000 ML IV SCH (15:00)
[2016-11-30 19:40] VITALS: BP 106/66
[2016-11-30] MEDS: TEMAZEPAM 15 MG CAPSULE PO PRN (22:36)
[2016-12-01] MEDS ORDERED: LEVO500T33 PO (03:06)
[2016-12-01 03:29] VITALS: BP 121/73
[2016-12-01] MEDS: NS + 20MEQ KCL 1,000 ML IV SCH (04:21)
[2016-12-01 04:52] LABS: HEMOGLOBIN 9.6 g/dL (11.7-16.4); WHITE BLOOD COUNT 2.8 x10^3/uL (3.4-10)
[2016-12-01 08:00] VITALS: BP 115/72
[2016-12-01] MEDS: predniSOLONE OPHTH SUSP 1%, 5ML EACHEYE SCH ×2 (08:00→11:00)
[2016-12-01] MEDS: SENNA/DOCUSATE TABLET PO SCH (08:34)
[2016-12-01] MEDS: AMLODIPINE 5 MG TABLET PO SCH (08:34)
[2016-12-01] MEDS: HYDROCHLOROTHIAZIDE 12.5 MG CAPSULE PO SCH (08:34)
[2016-12-01] MEDS ORDERED: TBO-FILGRASTIM 300 MCG/0.5 ML SQ ONE (10:00)
[2016-12-01 14:00] VITALS: BP 122/72
== END 2016-12-01 17:30 | disposition home or self-care (01) | DRG 837 ==
LOC: 3NW 11-24 10:18
PROVIDERS: ADMIT Internal Medicine Hematology & Oncology; ATTEND Internal Medicine Hematology & Oncology
DX: Z51.11 Encounter for antineoplastic chemotherapy (principal); D61.810 Antineoplastic chemotherapy induced pancytopenia; C92.00 Acute myeloblastic leukemia, not having achieved remission; F32.9 Major depressive disorder, single episode, unspecified; F41.9 Anxiety disorder, unspecified; E78.00 Pure hypercholesterolemia, unspecified; F42.9 Obsessive-compulsive disorder, unspecified; I10 Essential (primary) hypertension; L29.9 Pruritus, unspecified; Z82.0 Family history of epilepsy and other diseases of the nervous system; Z88.8 Allergy status to other drugs, medicaments and biological substances
CPT/HCPCS: 36415; 80053; 81003; 83735; 85025; J1100; J2405; J3480; J9100; Q0162; Q0164; J0780; J1447; J7030; J7050

== ENCOUNTER 2016-12-07 09:49 | Inpatient (IN) | payer OTHER ==
[2016-12-07] VITALS (11 sets, daily range): BP systolic 94–119; BP diastolic 53–73
[~2016-12-07] VITALS: Ht 165.1 cm; Wt 65.3 kg
[~2016-12-07 09:49] MED LIST changes: -HYDR-3138 PO; +HYDR-3237 PO; +HYDR12.58 PO; +LEVO500T47 PO; +TEMA15CA PO
[2016-12-07] MEDS ORDERED: SODIUM CHLORIDE 0.9% 1,000 ML IV ONE (10:54)
[2016-12-07] MEDS ORDERED: SODIUM CHLORIDE 0.9% 1,000ML IVBOLUS ONE (11:00)
[2016-12-07] MEDS ORDERED: SODIUM CHLORIDE FLUSH 10ML SYR IVF ONE (11:00)
[2016-12-07] MEDS ORDERED: CEFTRIAXONE PMX 1GM/50ML 50 ML IVPB ONE (11:00)
[2016-12-07] MEDS ORDERED: CEFTRIAXONE PMX 1GM/50ML 50 ML ONE (11:09)
[2016-12-07] MEDS ORDERED: FAMOTIDINE 20 MG/2 ML ONE (11:27)
[2016-12-07] MEDS ORDERED: MAALOX/HYOSCYAMINE/LIDOCAINE 45 ML BTL ONE (11:27)
[2016-12-07] MEDS ORDERED: FAMOTIDINE 20 MG/2 ML IVPush ONE (11:30)
[2016-12-07] MEDS ORDERED: MAALOX/HYOSCYAMINE/LIDOCAINE 45 ML BTL PO ONE (11:30)
[2016-12-07 11:44] LABS: BLOOD UREA NITROGEN 15 mg/dL (7-18)
[2016-12-07 11:48] LABS: ASPARTATE AMINO TRANSFERASE 18 U/L (15-37)
[2016-12-07] MEDS ORDERED: ONDANSETRON 2MG/ML, 2ML ONE (12:04)
[2016-12-07] MEDS ORDERED: ONDANSETRON 2MG/ML, 2ML IVPush ONE (12:30)
[2016-12-07 12:37] LABS: HEMATOCRIT 16.1 % (34.6-47.8); HEMOGLOBIN 5.8 g/dL (11.7-16.4); WHITE BLOOD COUNT 0.2 x10^3/uL (3.4-10)
[2016-12-07] MEDS ORDERED: [UNRECOGNIZED DRUG - CODE] PO (13:27)
[2016-12-07 13:42] LABS: PROTIME 11.2 Seconds (9.6-11.5)
[2016-12-07] MEDS ORDERED: LORazepam 2 MG/ML, 1ML IVPush PRN (14:00)
[2016-12-07] MEDS ORDERED: BISACODYL 10 MG SUPP PR PRN (14:00)
[2016-12-07] MEDS ORDERED: hydrALAzine 20 MG/ML, 1ML IVPush PRN (14:00)
[2016-12-07] MEDS ORDERED: VANCOMYCIN PER PHARMACY MC PRN (14:00)
[2016-12-07] MEDS ORDERED: DOCUSATE 100 MG CAPSULE PO PRN (14:00)
[2016-12-07] MEDS ORDERED: ACETAMINOPHEN 325 MG TABLET PO ONE (14:30)
[2016-12-07] MEDS ORDERED: DIPHENHYDRAMINE 50 MG/ML, 1ML IVPush ONE (14:30)
[2016-12-07] MEDS: morphine SULFATE 10 MG/ML, 1ML IVPush PRN ×2 (14:51→17:56)
[2016-12-07] MEDS ORDERED: SODIUM PHOSPHATE 20 MMOL in SODIUM CHLORIDE 0.9% 500 ML IV ONE (15:00)
[2016-12-07] MEDS ORDERED: PHARMACOKINETIC MONITORING MC PRN (15:00)
[2016-12-07] MEDS: VANCOMYCIN 1,300 MG in SODIUM CHLORIDE 0.9% 250 ML IV SCH (15:08)
[2016-12-07] MEDS ORDERED: HYDROCORTISONE 100 MG INJ. ONE (15:22)
[2016-12-07] MEDS ORDERED: HYDROCORTISONE 100 MG INJ. IVPush SCH (15:30)
[2016-12-07] MEDS ORDERED: OMNIPAQUE 350 MG/ML, 100ML BOTTLE ONE (17:00)
[2016-12-07] MEDS: ONDANSETRON 2MG/ML, 2ML IVPush PRN (17:57)
[2016-12-07] MEDS: MEROPENEM 1 GM in SODIUM CHLORIDE 0.9% 100 ML IV SCH (17:59)
[2016-12-07] MEDS: NS + 20MEQ KCL 1,000 ML IV SCH (18:09)
[2016-12-07] MEDS: FAMOTIDINE 20 MG/2 ML IVPush SCH (20:03)
[2016-12-07] MEDS: FLUCONAZOLE 200 MG/100 ML 100 ML IV SCH (21:10)
[2016-12-07] MEDS: PAROXETINE 10 MG TABLET PO SCH (21:37)
[2016-12-07] MEDS: AMLODIPINE 5 MG TABLET PO SCH (21:37)
[2016-12-07] MEDS: MIDOSTAURIN 50 MG PO SCH (21:37)
[2016-12-08] VITALS (11 sets, daily range): BP systolic 94–132; BP diastolic 54–63
[2016-12-08] MEDS: MEROPENEM 1 GM in SODIUM CHLORIDE 0.9% 100 ML IV SCH ×3 (01:46→18:27)
[2016-12-08 05:22] LABS: ASPARTATE AMINO TRANSFERASE 13 U/L (15-37); BLOOD UREA NITROGEN 15 mg/dL (7-18)
[2016-12-08 05:23] LABS: HEMATOCRIT 18.1 % (34.6-47.8); HEMOGLOBIN 6.4 g/dL (11.7-16.4); WHITE BLOOD COUNT 0.3 x10^3/uL (3.4-10)
[2016-12-08] MEDS ORDERED: DIPHENHYDRAMINE 50 MG/ML, 1ML IVPush ONE (08:00)
[2016-12-08] MEDS ORDERED: HYDROCORTISONE 100 MG INJ. IVPush ONE (08:00)
[2016-12-08] MEDS: FAMOTIDINE 20 MG/2 ML IVPush SCH ×2 (08:09→20:05)
[2016-12-08] MEDS: ACETAMINOPHEN 325 MG TABLET PO PRN ×2 (08:10→20:14)
[2016-12-08] MEDS: AMLODIPINE 5 MG TABLET PO SCH ×2 (09:00→20:06)
[2016-12-08] MEDS: MIDOSTAURIN 50 MG PO SCH ×2 (09:00→21:00)
[2016-12-08] MEDS: POLYETHYLENE GLYCOL 17 GM PACKET PO SCH (10:00)
[2016-12-08] MEDS: NS + 20MEQ KCL 1,000 ML IV SCH ×2 (10:06→23:39)
[2016-12-08] MEDS: NYSTATIN 500,000 UNITS/5 ML UDC PO SCH ×3 (12:38→20:05)
[2016-12-08] MEDS ORDERED: POTASSIUM CHLORIDE 20 MEQ TAB.ER.PRT PO ONE (16:00)
[2016-12-08] MEDS: morphine SULFATE 10 MG/ML, 1ML IVPush PRN (18:33)
[2016-12-08] MEDS: FLUCONAZOLE 200 MG/100 ML 100 ML IV SCH (20:05)
[2016-12-08] MEDS: PAROXETINE 10 MG TABLET PO SCH (22:28)
[2016-12-08] MEDS: TEMAZEPAM 15 MG CAPSULE PO PRN (22:29)
[2016-12-09] MEDS: MEROPENEM 1 GM in SODIUM CHLORIDE 0.9% 100 ML IV SCH ×3 (01:43→17:40)
[2016-12-09] MEDS: VANCOMYCIN 1,300 MG in SODIUM CHLORIDE 0.9% 250 ML IV SCH (03:03)
[2016-12-09 04:25] VITALS: BP 101/62
[2016-12-09 04:29] LABS: HEMATOCRIT 25.7 % (34.6-47.8)
[2016-12-09] MEDS: ACETAMINOPHEN 325 MG TABLET PO PRN ×5 (04:31→20:00)
[2016-12-09 04:37] LABS: WHITE BLOOD COUNT 0.3 x10^3/uL (3.4-10)
[2016-12-09 04:40] LABS: BLOOD UREA NITROGEN 13 mg/dL (7-18)
[2016-12-09 04:43] LABS: ASPARTATE AMINO TRANSFERASE 14 U/L (15-37)
[2016-12-09 05:23] LABS: DIFF TOTAL CELLS COUNTED 100 CELL DIFF
[2016-12-09 05:26] LABS: VERIFY COUNTS? YES
[2016-12-09 05:27] LABS: ANISOCYTOSIS 1+
[2016-12-09] MEDS: NYSTATIN 500,000 UNITS/5 ML UDC PO SCH ×4 (05:59→20:00)
[2016-12-09] MEDS: FAMOTIDINE 20 MG/2 ML IVPush SCH ×2 (07:50→20:00)
[2016-12-09] MEDS: MIDOSTAURIN 50 MG PO SCH ×2 (07:50→20:01)
[2016-12-09] MEDS: POLYETHYLENE GLYCOL 17 GM PACKET PO SCH (07:51)
[2016-12-09] MEDS: AMLODIPINE 5 MG TABLET PO SCH ×2 (07:51→20:00)
[2016-12-09 07:55] VITALS: BP 112/66
[2016-12-09] MEDS: morphine SULFATE 10 MG/ML, 1ML IVPush PRN (08:00)
[2016-12-09] MEDS: MICAFUNGIN 100 MG in SODIUM CHLORIDE 0.9% 100 ML IV SCH (13:13)
[2016-12-09 13:51] VITALS: BP 115/64
[2016-12-09] MEDS: DAPTOMYCIN 420 MG in SODIUM CHLORIDE 0.9% 100 ML IVPB SCH (14:27)
[2016-12-09] MEDS: NS + 20MEQ KCL 1,000 ML IV SCH (14:27)
[2016-12-09] MEDS: TBO-FILGRASTIM 480 MCG/0.8 ML SQ SCH (14:28)
[2016-12-09 19:28] VITALS: BP 119/68
[2016-12-09] MEDS: PAROXETINE 10 MG TABLET PO SCH (21:58)
[2016-12-09] MEDS: TEMAZEPAM 15 MG CAPSULE PO PRN (21:58)
[2016-12-09] MEDS: ACYCLOVIR 800 MG TABLET PO SCH (21:58)
[2016-12-10] MEDS: MEROPENEM 1 GM in SODIUM CHLORIDE 0.9% 100 ML IV SCH ×2 (01:18→09:49)
[2016-12-10 01:22] VITALS: BP 136/72
[2016-12-10 04:30] VITALS: BP 120/63
[2016-12-10] MEDS: ACETAMINOPHEN 325 MG TABLET PO PRN (04:34)
[2016-12-10 04:38] LABS: HEMATOCRIT 28.7 % (34.6-47.8); HEMOGLOBIN 9.9 g/dL (11.7-16.4)
[2016-12-10 04:44] LABS: WHITE BLOOD COUNT 0.7 x10^3/uL (3.4-10)
[2016-12-10 04:46] LABS: BLOOD UREA NITROGEN 6 mg/dL (7-18)
[2016-12-10 04:50] LABS: ASPARTATE AMINO TRANSFERASE 15 U/L (15-37)
[2016-12-10] MEDS: NS + 20MEQ KCL 1,000 ML IV SCH ×2 (06:06→20:10)
[2016-12-10] MEDS: NYSTATIN 500,000 UNITS/5 ML UDC PO SCH ×4 (06:06→21:57)
[2016-12-10 06:54] VITALS: BP 112/64
[2016-12-10] MEDS: FAMOTIDINE 20 MG/2 ML IVPush SCH ×2 (08:35→20:11)
[2016-12-10] MEDS: AMLODIPINE 5 MG TABLET PO SCH ×2 (08:35→21:57)
[2016-12-10] MEDS: ACYCLOVIR 800 MG TABLET PO SCH ×2 (08:35→20:11)
[2016-12-10] MEDS: POLYETHYLENE GLYCOL 17 GM PACKET PO SCH (08:36)
[2016-12-10] MEDS: MIDOSTAURIN 50 MG PO SCH ×2 (08:36→21:00)
[2016-12-10] MEDS: TBO-FILGRASTIM 480 MCG/0.8 ML SQ SCH (08:36)
[2016-12-10] MEDS ORDERED: HYDROCORTISONE 100 MG INJ. IVPush ONE (10:30)
[2016-12-10] MEDS: CEFTRIAXONE PMX 1GM/50ML 50 ML IV SCH (11:26)
[2016-12-10 12:58] VITALS: BP 115/65
[2016-12-10] MEDS: MICAFUNGIN 100 MG in SODIUM CHLORIDE 0.9% 100 ML IV SCH (14:20)
[2016-12-10] MEDS: DAPTOMYCIN 420 MG in SODIUM CHLORIDE 0.9% 100 ML IVPB SCH (15:29)
[2016-12-10] MEDS: VANCOMYCIN 50 MG/ML ORAL SUSP PO SCH ×2 (15:31→21:57)
[2016-12-10] MEDS: POTASSIUM CHLORIDE 20 MEQ TAB.ER.PRT PO SCH (17:23)
[2016-12-10 20:08] VITALS: BP 119/69
[2016-12-10] MEDS: PAROXETINE 10 MG TABLET PO SCH (21:57)
[2016-12-10] MEDS: maalox/diphenh/lido/sucralfate 5 ML PO PRN (21:58)
[2016-12-10] MEDS: TEMAZEPAM 15 MG CAPSULE PO PRN (22:02)
[2016-12-11 03:40] VITALS: BP 110/66
[2016-12-11] MEDS: VANCOMYCIN 50 MG/ML ORAL SUSP PO SCH ×4 (03:40→21:43)
[2016-12-11] MEDS: NYSTATIN 500,000 UNITS/5 ML UDC PO SCH ×4 (03:52→19:27)
[2016-12-11 04:46] LABS: BLOOD UREA NITROGEN 10 mg/dL (7-18)
[2016-12-11 05:02] LABS: HEMATOCRIT 25.1 % (34.6-47.8); HEMOGLOBIN 8.7 g/dL (11.7-16.4); WHITE BLOOD COUNT 4.1 x10^3/uL (3.4-10)
[2016-12-11 05:47] LABS: DIFF TOTAL CELLS COUNTED 100 CELL DIFF
[2016-12-11 05:52] LABS: ANISOCYTOSIS 1+; VERIFY COUNTS? YES
[2016-12-11 05:55] LABS: LARGE PLATELETS 1+
[2016-12-11 07:31] VITALS: BP 118/77
[2016-12-11] MEDS: TBO-FILGRASTIM 480 MCG/0.8 ML SQ SCH (09:12)
[2016-12-11] MEDS: ACYCLOVIR 800 MG TABLET PO SCH ×2 (09:24→19:27)
[2016-12-11] MEDS: CEFTRIAXONE PMX 1GM/50ML 50 ML IV SCH (09:24)
[2016-12-11] MEDS: AMLODIPINE 5 MG TABLET PO SCH ×2 (09:25→19:27)
[2016-12-11] MEDS: POTASSIUM CHLORIDE 20 MEQ TAB.ER.PRT PO SCH ×2 (09:25→16:13)
[2016-12-11] MEDS: POLYETHYLENE GLYCOL 17 GM PACKET PO SCH (09:25)
[2016-12-11] MEDS: FAMOTIDINE 20 MG/2 ML IVPush SCH (09:26)
[2016-12-11] MEDS: MIDOSTAURIN 50 MG PO SCH ×2 (09:27→19:27)
[2016-12-11 12:47] VITALS: BP 108/68
[2016-12-11] MEDS: MICAFUNGIN 100 MG in SODIUM CHLORIDE 0.9% 100 ML IV SCH (12:53)
[2016-12-11] MEDS: NS + 20MEQ KCL 1,000 ML IV SCH ×2 (12:53→23:50)
[2016-12-11] MEDS: DAPTOMYCIN 420 MG in SODIUM CHLORIDE 0.9% 100 ML IVPB SCH (14:18)
[2016-12-11] MEDS: CEFUROXIME 1.5 GM in SODIUM CHLORIDE 0.9% 50 ML IV SCH ×2 (16:12→23:50)
[2016-12-11] MEDS: ACETAMINOPHEN 325 MG TABLET PO PRN (18:23)
[2016-12-11 19:03] VITALS: BP 117/69
[2016-12-11] MEDS: FAMOTIDINE 20 MG TABLET PO SCH (19:27)
[2016-12-11] MEDS: PAROXETINE 10 MG TABLET PO SCH (21:43)
[2016-12-11] MEDS: TEMAZEPAM 15 MG CAPSULE PO PRN (21:44)
[2016-12-12] MEDS: VANCOMYCIN 50 MG/ML ORAL SUSP PO SCH ×4 (03:41→22:43)
[2016-12-12] MEDS: NYSTATIN 500,000 UNITS/5 ML UDC PO SCH ×4 (03:41→22:43)
[2016-12-12 03:42] VITALS: BP 123/72
[2016-12-12 05:18] LABS: HEMATOCRIT 29.6 % (34.6-47.8); HEMOGLOBIN 10.2 g/dL (11.7-16.4); WHITE BLOOD COUNT 7.3 x10^3/uL (3.4-10)
[2016-12-12 06:03] LABS: DIFF TOTAL CELLS COUNTED 100 CELL DIFF
[2016-12-12 06:05] LABS: ANISOCYTOSIS 1+; VERIFY COUNTS? YES
[2016-12-12] MEDS: TBO-FILGRASTIM 480 MCG/0.8 ML SQ SCH (07:25)
[2016-12-12 07:50] VITALS: BP 125/78
[2016-12-12] MEDS ORDERED: MAGNESIUM SULFATE PMX 2GM/50ML 50 ML IV ONE (08:00)
[2016-12-12] MEDS ORDERED: POTASSIUM PHOSPHATE 22 MEQ in SODIUM CHLORIDE 0.9% 500 ML IV ONE (08:00)
[2016-12-12] MEDS: AMLODIPINE 5 MG TABLET PO SCH ×2 (08:18→20:42)
[2016-12-12] MEDS: CEFUROXIME 1.5 GM in SODIUM CHLORIDE 0.9% 50 ML IV SCH ×2 (08:18→15:54)
[2016-12-12] MEDS: ACYCLOVIR 800 MG TABLET PO SCH ×2 (08:18→20:42)
[2016-12-12] MEDS: POLYETHYLENE GLYCOL 17 GM PACKET PO SCH (08:19)
[2016-12-12] MEDS: FAMOTIDINE 20 MG TABLET PO SCH ×2 (08:19→20:42)
[2016-12-12] MEDS: MIDOSTAURIN 50 MG PO SCH ×2 (08:21→20:42)
[2016-12-12] MEDS: NS + 20MEQ KCL 1,000 ML IV SCH (13:09)
[2016-12-12 13:14] VITALS: BP 107/66
[2016-12-12] MEDS: ACETAMINOPHEN 325 MG TABLET PO PRN (19:49)
[2016-12-12 20:00] VITALS: BP 126/73
[2016-12-12] MEDS: TEMAZEPAM 15 MG CAPSULE PO PRN (22:43)
[2016-12-12] MEDS: PAROXETINE 10 MG TABLET PO SCH (22:43)
[2016-12-13] MEDS: CEFUROXIME 1.5 GM in SODIUM CHLORIDE 0.9% 50 ML IV SCH ×4 (00:04→21:40)
[2016-12-13 02:00] VITALS: BP 120/72
[2016-12-13 04:31] LABS: HEMATOCRIT 29.4 % (34.6-47.8); HEMOGLOBIN 10.1 g/dL (11.7-16.4); WHITE BLOOD COUNT 6.2 x10^3/uL (3.4-10)
[2016-12-13 04:39] LABS: BLOOD UREA NITROGEN 10 mg/dL (7-18)
[2016-12-13] MEDS: VANCOMYCIN 50 MG/ML ORAL SUSP PO SCH ×4 (04:53→21:42)
[2016-12-13] MEDS: NS + 20MEQ KCL 1,000 ML IV SCH ×2 (04:54→18:37)
[2016-12-13] MEDS: NYSTATIN 500,000 UNITS/5 ML UDC PO SCH ×4 (04:57→21:40)
[2016-12-13] MEDS: ACETAMINOPHEN 325 MG TABLET PO PRN ×2 (06:48→21:41)
[2016-12-13 07:07] VITALS: BP 126/76
[2016-12-13] MEDS: TBO-FILGRASTIM 480 MCG/0.8 ML SQ SCH (07:48)
[2016-12-13] MEDS: FAMOTIDINE 20 MG TABLET PO SCH ×2 (07:51→21:41)
[2016-12-13] MEDS: ACYCLOVIR 800 MG TABLET PO SCH ×2 (07:51→21:40)
[2016-12-13] MEDS: POLYETHYLENE GLYCOL 17 GM PACKET PO SCH (07:52)
[2016-12-13] MEDS: AMLODIPINE 5 MG TABLET PO SCH ×2 (07:52→21:40)
[2016-12-13] MEDS: MIDOSTAURIN 50 MG PO SCH ×2 (07:53→21:00)
[2016-12-13] MEDS ORDERED: hydrALAzine 20 MG/ML, 1ML IVPush PRN (14:30)
[2016-12-13] MEDS ORDERED: BISACODYL 10 MG SUPP PR PRN (14:30)
[2016-12-13] MEDS ORDERED: DOCUSATE 100 MG CAPSULE PO PRN (14:30)
[2016-12-13 14:49] VITALS: BP 121/70
[2016-12-13 20:02] VITALS: BP 136/74
[2016-12-13] MEDS: ONDANSETRON 2MG/ML, 2ML IVPush PRN (21:00)
[2016-12-13] MEDS: PAROXETINE 10 MG TABLET PO SCH (21:41)
[2016-12-13] MEDS: maalox/diphenh/lido/sucralfate 5 ML PO PRN (22:26)
[2016-12-13] MEDS: TEMAZEPAM 15 MG CAPSULE PO PRN (22:27)
[2016-12-14 02:02] VITALS: BP 119/74
[2016-12-14 05:03] LABS: HEMATOCRIT 28.4 % (34.6-47.8); HEMOGLOBIN 9.8 g/dL (11.7-16.4); WHITE BLOOD COUNT 6.3 x10^3/uL (3.4-10)
[2016-12-14 05:25] LABS: ASPARTATE AMINO TRANSFERASE 21 U/L (15-37); BLOOD UREA NITROGEN 7 mg/dL (7-18)
[2016-12-14] MEDS: CEFUROXIME 1.5 GM in SODIUM CHLORIDE 0.9% 50 ML IV SCH ×3 (06:05→22:16)
[2016-12-14] MEDS: VANCOMYCIN 50 MG/ML ORAL SUSP PO SCH ×4 (06:05→22:15)
[2016-12-14] MEDS: NYSTATIN 500,000 UNITS/5 ML UDC PO SCH ×4 (06:05→22:17)
[2016-12-14] MEDS: maalox/diphenh/lido/sucralfate 5 ML PO PRN ×2 (06:06→22:15)
[2016-12-14 06:48] VITALS: BP 124/73
[2016-12-14] MEDS: MIDOSTAURIN 50 MG PO SCH ×2 (08:32→21:00)
[2016-12-14] MEDS: AMLODIPINE 5 MG TABLET PO SCH ×2 (08:32→22:17)
[2016-12-14] MEDS: ACYCLOVIR 800 MG TABLET PO SCH ×2 (08:32→22:17)
[2016-12-14] MEDS: FAMOTIDINE 20 MG TABLET PO SCH ×2 (08:32→22:17)
[2016-12-14] MEDS: POLYETHYLENE GLYCOL 17 GM PACKET PO SCH (08:32)
[2016-12-14 13:10] VITALS: BP 123/76
[2016-12-14 18:55] VITALS: BP 135/78
[2016-12-14] MEDS: PAROXETINE 10 MG TABLET PO SCH (22:16)
[2016-12-14] MEDS: TEMAZEPAM 15 MG CAPSULE PO PRN (22:16)
[2016-12-15] MEDS: ACETAMINOPHEN 325 MG TABLET PO PRN (00:03)
[2016-12-15 02:40] VITALS: BP 118/73
[2016-12-15 04:58] LABS: HEMATOCRIT 29.3 % (34.6-47.8); WHITE BLOOD COUNT 5.9 x10^3/uL (3.4-10)
[2016-12-15 05:07] LABS: BLOOD UREA NITROGEN 12 mg/dL (7-18)
[2016-12-15 05:22] LABS: DIFF TOTAL CELLS COUNTED 100 CELL DIFF
[2016-12-15 05:25] LABS: ANISOCYTOSIS 1+; VERIFY COUNTS? YES
[2016-12-15] MEDS: CEFUROXIME 1.5 GM in SODIUM CHLORIDE 0.9% 50 ML IV SCH ×3 (05:59→22:47)
[2016-12-15] MEDS: VANCOMYCIN 50 MG/ML ORAL SUSP PO SCH ×4 (05:59→22:47)
[2016-12-15] MEDS: NYSTATIN 500,000 UNITS/5 ML UDC PO SCH ×4 (05:59→21:29)
[2016-12-15 07:40] VITALS: BP 111/67
[2016-12-15] MEDS: POLYETHYLENE GLYCOL 17 GM PACKET PO SCH (09:00)
[2016-12-15] MEDS: MIDOSTAURIN 50 MG PO SCH ×2 (09:00→21:00)
[2016-12-15] MEDS: FAMOTIDINE 20 MG TABLET PO SCH ×2 (10:56→21:29)
[2016-12-15] MEDS: AMLODIPINE 5 MG TABLET PO SCH ×2 (10:56→21:29)
[2016-12-15] MEDS: ACYCLOVIR 800 MG TABLET PO SCH ×2 (10:56→21:29)
[2016-12-15 15:47] VITALS: BP 129/77
[2016-12-15 19:06] VITALS: BP 135/79
[2016-12-15] MEDS: ONDANSETRON 2MG/ML, 2ML IVPush PRN (21:29)
[2016-12-15] MEDS: maalox/diphenh/lido/sucralfate 5 ML PO PRN (21:29)
[2016-12-15] MEDS: PAROXETINE 10 MG TABLET PO SCH (22:47)
[2016-12-15] MEDS: TEMAZEPAM 15 MG CAPSULE PO PRN (22:49)
[2016-12-16 03:25] VITALS: BP 117/71
[2016-12-16 05:23] LABS: HEMATOCRIT 30.4 % (34.6-47.8); HEMOGLOBIN 10.3 g/dL (11.7-16.4); WHITE BLOOD COUNT 6.3 x10^3/uL (3.4-10)
[2016-12-16] MEDS: VANCOMYCIN 50 MG/ML ORAL SUSP PO SCH ×4 (06:07→22:45)
[2016-12-16] MEDS: CEFUROXIME 1.5 GM in SODIUM CHLORIDE 0.9% 50 ML IV SCH (06:07)
[2016-12-16] MEDS: ACETAMINOPHEN 325 MG TABLET PO PRN ×2 (06:07→21:12)
[2016-12-16] MEDS: NYSTATIN 500,000 UNITS/5 ML UDC PO SCH ×4 (06:07→21:12)
[2016-12-16 06:47] VITALS: BP 110/68
[2016-12-16] MEDS: FAMOTIDINE 20 MG TABLET PO SCH ×2 (08:33→21:12)
[2016-12-16] MEDS: ACYCLOVIR 800 MG TABLET PO SCH ×2 (08:33→21:12)
[2016-12-16] MEDS: AMLODIPINE 5 MG TABLET PO SCH ×2 (08:33→21:12)
[2016-12-16] MEDS: POLYETHYLENE GLYCOL 17 GM PACKET PO SCH (08:34)
[2016-12-16] MEDS: MIDOSTAURIN 50 MG PO SCH ×2 (08:34→21:00)
[2016-12-16] MEDS: CEFTRIAXONE PMX 1GM/50ML 50 ML IV SCH (12:22)
[2016-12-16] MEDS: ONDANSETRON 2MG/ML, 2ML IVPush PRN (12:23)
[2016-12-16 13:00] VITALS: BP 146/74
[2016-12-16 20:10] VITALS: BP 113/73
[2016-12-16] MEDS: PAROXETINE 10 MG TABLET PO SCH (22:45)
[2016-12-16] MEDS: TEMAZEPAM 15 MG CAPSULE PO PRN (22:46)
[2016-12-17 02:40] VITALS: BP 106/68
[2016-12-17 04:58] LABS: HEMATOCRIT 30.4 % (34.6-47.8); HEMOGLOBIN 10.3 g/dL (11.7-16.4); WHITE BLOOD COUNT 4.7 x10^3/uL (3.4-10)
[2016-12-17] MEDS: NYSTATIN 500,000 UNITS/5 ML UDC PO SCH ×2 (05:34→11:40)
[2016-12-17] MEDS: VANCOMYCIN 50 MG/ML ORAL SUSP PO SCH ×4 (05:34→22:40)
[2016-12-17] MEDS: ACETAMINOPHEN 325 MG TABLET PO PRN (05:34)
[2016-12-17] MEDS: MIDOSTAURIN 50 MG PO SCH ×2 (08:27→19:26)
[2016-12-17] MEDS: FAMOTIDINE 20 MG TABLET PO SCH ×2 (08:27→20:52)
[2016-12-17] MEDS: AMLODIPINE 5 MG TABLET PO SCH ×2 (08:27→20:52)
[2016-12-17] MEDS: ACYCLOVIR 800 MG TABLET PO SCH (08:27)
[2016-12-17] MEDS: POLYETHYLENE GLYCOL 17 GM PACKET PO SCH (08:27)
[2016-12-17 08:30] VITALS: BP 123/77
[2016-12-17] MEDS: CEFTRIAXONE PMX 1GM/50ML 50 ML IV SCH (11:40)
[2016-12-17 15:00] VITALS: BP 105/59
[2016-12-17 19:29] VITALS: BP 130/80
[2016-12-17] MEDS: PAROXETINE 10 MG TABLET PO SCH (22:40)
[2016-12-17] MEDS: TEMAZEPAM 15 MG CAPSULE PO PRN (22:40)
[2016-12-18 02:38] VITALS: BP 106/67
[2016-12-18] MEDS: VANCOMYCIN 50 MG/ML ORAL SUSP PO SCH ×2 (04:59→10:33)
[2016-12-18 08:04] VITALS: BP 118/71
[2016-12-18] MEDS: POLYETHYLENE GLYCOL 17 GM PACKET PO SCH (08:18)
[2016-12-18] MEDS: FAMOTIDINE 20 MG TABLET PO SCH (08:18)
[2016-12-18] MEDS: AMLODIPINE 5 MG TABLET PO SCH (08:18)
[2016-12-18] MEDS: MIDOSTAURIN 50 MG PO SCH (08:18)
[2016-12-18] MEDS: CEFTRIAXONE PMX 1GM/50ML 50 ML IV SCH (10:33)
[2016-12-18] MEDS ORDERED: VANC125C2 PO (10:47)
== END 2016-12-18 11:45 | disposition home or self-care (01) | DRG 871 ==
LOC: ED 11:28 → EDIP 13:00 → 3NW 14:23
PROVIDERS: ADMIT Internal Medicine; ATTEND Internal Medicine
PROC: 30233N1 Transfusion of Nonautologous Red Blood Cells into Peripheral Vein, Percutaneous Approach (ICD-10-PCS; principal; 2016-12-07)
DX: A41.51 Sepsis due to Escherichia coli [E. coli] (principal); D61.810 Antineoplastic chemotherapy induced pancytopenia; C92.00 Acute myeloblastic leukemia, not having achieved remission; A04.7 Enterocolitis due to Clostridium difficile; D61.818 Other pancytopenia; E44.1 Mild protein-calorie malnutrition; E87.1 Hypo-osmolality and hyponatremia; E87.5 Hyperkalemia; R13.10 Dysphagia, unspecified; B96.89 Other specified bacterial agents as the cause of diseases classified elsewhere; E78.5 Hyperlipidemia, unspecified; E87.6 Hypokalemia; F42.9 Obsessive-compulsive disorder, unspecified; I10 Essential (primary) hypertension; K12.30 Oral mucositis (ulcerative), unspecified; K21.0 Gastro-esophageal reflux disease with esophagitis; K44.9 Diaphragmatic hernia without obstruction or gangrene; K59.00 Constipation, unspecified; R50.81 Fever presenting with conditions classified elsewhere; R62.7 Adult failure to thrive; Z82.0 Family history of epilepsy and other diseases of the nervous system; Z86.19 Personal history of other infectious and parasitic diseases; Z68.24 Body mass index [BMI] 24.0-24.9, adult; Z88.8 Allergy status to other drugs, medicaments and biological substances
CPT/HCPCS: 36415; 71010; 74177; 80048; 80053; 81001; 83605; 83735; 84100; 85025; 85049; 85379; 85384; 85610; 85651; 85730; 86140; 86850; 86900; 86923; 87040; 87077; 87186; 87324; 87493; 93005; 96365; J0696; J0697; J0878; J2185; J2248; J2405; J3370; J3480; Q9967; J1200; J1447; J1450; J1720; J2060; J2270; J3475; J7030; J7040; J7050; P9037; P9040; S0028

== ENCOUNTER 2016-12-28 13:09 | Inpatient (IN) | payer OTHER ==
[~2016-12-28] VITALS: Ht 165.1 cm; Wt 64.2 kg
[~2016-12-28 13:09] MED LIST changes: +VANC125C2 PO; +[UNRECOGNIZED DRUG - CODE] PO
[2016-12-28] MEDS ORDERED: ACETAMINOPHEN 325 MG TABLET PO ONE (13:30)
[2016-12-28] MEDS ORDERED: SODIUM CHLORIDE FLUSH 10ML SYR IVF ONE (13:30)
[2016-12-28] MEDS ORDERED: ACETAMINOPHEN 325 MG TABLET ONE (13:41)
[2016-12-28 13:55] LABS: HEMATOCRIT 33.3 % (34.6-47.8); HEMOGLOBIN 11.2 g/dL (11.7-16.4)
[2016-12-28 14:06] LABS: ASPARTATE AMINO TRANSFERASE 45 U/L (15-37); BLOOD UREA NITROGEN 12 mg/dL (7-18)
[2016-12-28] MEDS ORDERED: OMNIPAQUE 350 MG/ML, 100ML BOTTLE ONE (15:17)
[2016-12-28] MEDS ORDERED: METRONIDAZOLE PMX 500MG/100ML 100 ML IVPB ONE (16:30)
[2016-12-28] MEDS ORDERED: CIPROFLOXACIN/PMX 400MG/200ML 100 ML IVPB ONE (16:30)
[2016-12-28] MEDS ORDERED: SODIUM CHLORIDE FLUSH 10ML SYR IVF PRN (17:00)
[2016-12-28] MEDS ORDERED: CIPROFLOXACIN/PMX 400MG/200ML 200 ML ONE (17:20)
[2016-12-28] MEDS: SODIUM CHLORIDE 0.9% 1,000 ML IV SCH (17:29)
[2016-12-28] MEDS ORDERED: BISACODYL 10 MG SUPP PR PRN (17:30)
[2016-12-28] MEDS ORDERED: ONDANSETRON ODT 4 MG PO PRN (17:30)
[2016-12-28] MEDS ORDERED: DOCUSATE 100 MG CAPSULE PO PRN (17:30)
[2016-12-28] MEDS ORDERED: HYDROcodone/APAP 5/325 TABLET PO PRN (17:30)
[2016-12-28] MEDS ORDERED: ACETAMINOPHEN 325 MG TABLET PO PRN (17:30)
[2016-12-28] MEDS ORDERED: ENALAPRILAT 1.25 MG/ML, 2ML IVPush PRN (17:30)
[2016-12-28] MEDS ORDERED: CETIRIZINE 10 MG TABLET PO PRN (17:30)
[2016-12-28] MEDS ORDERED: hydrALAzine 20 MG/ML, 1ML IVPush PRN (17:30)
[2016-12-28 18:04] VITALS: BP 119/76
[2016-12-28] MEDS: ONDANSETRON 2MG/ML, 2ML IVPush PRN (18:48)
[2016-12-28 19:45] VITALS: BP 143/80
[2016-12-28] MEDS: AMLODIPINE 5 MG TABLET PO SCH (21:17)
[2016-12-28] MEDS: PAROXETINE 10 MG TABLET PO SCH (22:05)
[2016-12-28] MEDS: METRONIDAZOLE PMX 500MG/100ML 100 ML IV SCH (22:05)
[2016-12-29 03:58] VITALS: BP 120/74
[2016-12-29] MEDS: CIPROFLOXACIN/PMX 400MG/200ML 200 ML IV SCH ×2 (04:01→06:10)
[2016-12-29] MEDS: SODIUM CHLORIDE 0.9% 1,000 ML IV SCH ×2 (04:01→13:35)
[2016-12-29 05:12] LABS: HEMATOCRIT 29.2 % (34.6-47.8); HEMOGLOBIN 9.9 g/dL (11.7-16.4); WHITE BLOOD COUNT 8.6 x10^3/uL (3.4-10)
[2016-12-29] MEDS: METRONIDAZOLE PMX 500MG/100ML 100 ML IV SCH ×3 (05:33→22:01)
[2016-12-29 05:38] LABS: BLOOD UREA NITROGEN 9 mg/dL (7-18)
[2016-12-29] MEDS: SENNA/DOCUSATE TABLET PO SCH (07:45)
[2016-12-29 07:48] VITALS: BP 109/66
[2016-12-29] MEDS: HYDROCHLOROTHIAZIDE 12.5 MG CAPSULE PO SCH (08:00)
[2016-12-29] MEDS: AMLODIPINE 5 MG TABLET PO SCH ×2 (08:00→22:01)
[2016-12-29] MEDS: ONDANSETRON 2MG/ML, 2ML IVPush PRN (13:35)
[2016-12-29 13:45] VITALS: BP 115/67
[2016-12-29] MEDS: CEFTRIAXONE PMX 2GM/50ML 50 ML IV SCH (17:12)
[2016-12-29 20:53] VITALS: BP 118/68
[2016-12-29] MEDS: hydrOXyzine 10MG TABLET PO PRN (22:01)
[2016-12-29] MEDS: PAROXETINE 10 MG TABLET PO SCH (22:01)
[2016-12-30] MEDS: SODIUM CHLORIDE 0.9% 1,000 ML IV SCH ×3 (01:11→21:10)
[2016-12-30 04:11] VITALS: BP 113/61
[2016-12-30] MEDS: METRONIDAZOLE PMX 500MG/100ML 100 ML IV SCH ×3 (05:00→21:11)
[2016-12-30] MEDS: hydrOXyzine 10MG TABLET PO PRN ×3 (06:14→23:04)
[2016-12-30 07:19] VITALS: BP 109/67
[2016-12-30] MEDS: AMLODIPINE 5 MG TABLET PO SCH ×2 (08:24→21:10)
[2016-12-30] MEDS: HYDROCHLOROTHIAZIDE 12.5 MG CAPSULE PO SCH (08:24)
[2016-12-30] MEDS: SENNA/DOCUSATE TABLET PO SCH ×2 (08:24→21:11)
[2016-12-30] MEDS: VANCOMYCIN 50 MG/ML ORAL SUSP PO SCH ×3 (10:56→23:04)
[2016-12-30] MEDS: ENOXAPARIN 40 MG/0.4 ML SQ SCH (10:56)
[2016-12-30 12:43] VITALS: BP 112/61
[2016-12-30] MEDS: CEFTRIAXONE PMX 2GM/50ML 50 ML IV SCH (16:59)
[2016-12-30 19:34] VITALS: BP 119/66
[2016-12-30] MEDS: PAROXETINE 10 MG TABLET PO SCH (23:04)
[2016-12-31 02:36] VITALS: BP 127/72
[2016-12-31 04:31] LABS: BLOOD UREA NITROGEN 5 mg/dL (7-18)
[2016-12-31 04:34] LABS: ASPARTATE AMINO TRANSFERASE 30 U/L (15-37)
[2016-12-31] MEDS: METRONIDAZOLE PMX 500MG/100ML 100 ML IV SCH ×3 (04:54→20:24)
[2016-12-31] MEDS: VANCOMYCIN 50 MG/ML ORAL SUSP PO SCH ×4 (04:55→22:50)
[2016-12-31 07:25] VITALS: BP 120/72
[2016-12-31] MEDS: SODIUM CHLORIDE 0.9% 1,000 ML IV SCH ×2 (07:48→16:30)
[2016-12-31] MEDS: AMLODIPINE 5 MG TABLET PO SCH ×2 (08:00→20:24)
[2016-12-31] MEDS: HYDROCHLOROTHIAZIDE 12.5 MG CAPSULE PO SCH (08:00)
[2016-12-31] MEDS: ENOXAPARIN 40 MG/0.4 ML SQ SCH (10:39)
[2016-12-31 12:52] VITALS: BP 116/66
[2016-12-31] MEDS: CEFTRIAXONE PMX 2GM/50ML 50 ML IV SCH (15:56)
[2016-12-31] MEDS: ONDANSETRON 2MG/ML, 2ML IVPush PRN (16:23)
[2016-12-31 19:40] VITALS: BP 124/69
[2016-12-31] MEDS: PAROXETINE 10 MG TABLET PO SCH (22:49)
[2017-01-01 00:45] VITALS: BP 127/69
[2017-01-01] MEDS: SODIUM CHLORIDE 0.9% 1,000 ML IV SCH (04:17)
[2017-01-01 04:39] LABS: HEMATOCRIT 30.3 % (34.6-47.8); HEMOGLOBIN 10.2 g/dL (11.7-16.4); WHITE BLOOD COUNT 5.6 x10^3/uL (3.4-10)
[2017-01-01] MEDS: VANCOMYCIN 50 MG/ML ORAL SUSP PO SCH ×4 (04:46→21:58)
[2017-01-01] MEDS: METRONIDAZOLE PMX 500MG/100ML 100 ML IV SCH ×3 (04:46→20:02)
[2017-01-01 04:47] LABS: BLOOD UREA NITROGEN 4 mg/dL (7-18)
[2017-01-01 08:11] VITALS: BP 125/70
[2017-01-01] MEDS: AMLODIPINE 5 MG TABLET PO SCH ×2 (08:21→20:02)
[2017-01-01] MEDS: HYDROCHLOROTHIAZIDE 12.5 MG CAPSULE PO SCH (08:21)
[2017-01-01] MEDS: ENOXAPARIN 40 MG/0.4 ML SQ SCH (11:18)
[2017-01-01 15:33] VITALS: BP 138/70
[2017-01-01] MEDS: CEFTRIAXONE PMX 2GM/50ML 50 ML IV SCH (16:37)
[2017-01-01 19:12] VITALS: BP 136/77
[2017-01-01] MEDS: ACYCLOVIR OINT 5%, 15GM TP SCH ×2 (19:47→20:02)
[2017-01-01] MEDS: PAROXETINE 10 MG TABLET PO SCH (21:58)
[2017-01-02 01:13] VITALS: BP 122/75
[2017-01-02] MEDS: VANCOMYCIN 50 MG/ML ORAL SUSP PO SCH ×4 (05:20→22:07)
[2017-01-02] MEDS: METRONIDAZOLE PMX 500MG/100ML 100 ML IV SCH ×3 (05:20→20:30)
[2017-01-02] MEDS: ACYCLOVIR OINT 5%, 15GM TP SCH ×6 (05:20→20:30)
[2017-01-02 07:11] VITALS: BP 122/72
[2017-01-02] MEDS: AMLODIPINE 5 MG TABLET PO SCH ×2 (09:35→20:30)
[2017-01-02] MEDS: HYDROCHLOROTHIAZIDE 12.5 MG CAPSULE PO SCH (09:35)
[2017-01-02] MEDS: ENOXAPARIN 40 MG/0.4 ML SQ SCH (09:37)
[2017-01-02 13:17] VITALS: BP 114/69
[2017-01-02] MEDS: ONDANSETRON 2MG/ML, 2ML IVPush PRN (16:36)
[2017-01-02] MEDS: CEFTRIAXONE PMX 2GM/50ML 50 ML IV SCH (16:51)
[2017-01-02 19:30] VITALS: BP 112/68
[2017-01-02] MEDS: PAROXETINE 10 MG TABLET PO SCH (22:07)
[2017-01-03 05:03] VITALS: BP 121/71
[2017-01-03] MEDS: METRONIDAZOLE PMX 500MG/100ML 100 ML IV SCH ×3 (05:05→20:38)
[2017-01-03] MEDS: ACYCLOVIR OINT 5%, 15GM TP SCH ×6 (05:05→20:39)
[2017-01-03] MEDS: VANCOMYCIN 50 MG/ML ORAL SUSP PO SCH ×4 (05:05→22:38)
[2017-01-03 08:10] VITALS: BP 121/80
[2017-01-03] MEDS: HYDROCHLOROTHIAZIDE 12.5 MG CAPSULE PO SCH (08:15)
[2017-01-03] MEDS: AMLODIPINE 5 MG TABLET PO SCH ×2 (08:15→20:38)
[2017-01-03] MEDS: ENOXAPARIN 40 MG/0.4 ML SQ SCH (10:58)
[2017-01-03 13:50] VITALS: BP 120/71
[2017-01-03] MEDS: CEFTRIAXONE PMX 2GM/50ML 50 ML IV SCH (16:02)
[2017-01-03 19:15] VITALS: BP 134/80
[2017-01-03] MEDS: PAROXETINE 10 MG TABLET PO SCH (22:38)
[2017-01-04 04:21] VITALS: BP 118/72
[2017-01-04] MEDS: ACYCLOVIR OINT 5%, 15GM TP SCH ×4 (05:37→15:00)
[2017-01-04] MEDS: METRONIDAZOLE PMX 500MG/100ML 100 ML IV SCH ×2 (05:37→13:03)
[2017-01-04] MEDS: VANCOMYCIN 50 MG/ML ORAL SUSP PO SCH ×3 (05:38→16:19)
[2017-01-04 08:27] VITALS: BP 128/79
[2017-01-04] MEDS: AMLODIPINE 5 MG TABLET PO SCH (08:31)
[2017-01-04] MEDS: HYDROCHLOROTHIAZIDE 12.5 MG CAPSULE PO SCH (08:31)
[2017-01-04] MEDS: ONDANSETRON 2MG/ML, 2ML IVPush PRN (11:13)
[2017-01-04] MEDS: ENOXAPARIN 40 MG/0.4 ML SQ SCH (11:14)
[2017-01-04 14:00] VITALS: BP 132/79
[2017-01-04] MEDS ORDERED: VANC1VIA3 PO (15:17)
[2017-01-04] MEDS ORDERED: LACT1CAP24 PO (15:19)
[2017-01-04] MEDS: CEFTRIAXONE PMX 2GM/50ML 50 ML IV SCH (16:00)
== END 2017-01-04 18:00 | disposition home or self-care (01) | DRG 872 ==
LOC: ED 14:01 → EDIP 16:34 → 3NW 17:45
PROVIDERS: ADMIT Hospitalist; ATTEND Hospitalist
DX: A41.9 Sepsis, unspecified organism (principal); D61.818 Other pancytopenia; A04.7 Enterocolitis due to Clostridium difficile; K57.32 Diverticulitis of large intestine without perforation or abscess without bleeding; E87.1 Hypo-osmolality and hyponatremia; C92.Z1 Other myeloid leukemia, in remission; F41.9 Anxiety disorder, unspecified; E78.5 Hyperlipidemia, unspecified; F32.9 Major depressive disorder, single episode, unspecified; F43.10 Post-traumatic stress disorder, unspecified; I10 Essential (primary) hypertension; Z88.8 Allergy status to other drugs, medicaments and biological substances; Z92.21 Personal history of antineoplastic chemotherapy
CPT/HCPCS: 36415; 71020; 74177; 80048; 80053; 81003; 83605; 83735; 84100; 84439; 84443; 85025; 85610; 85730; 87040; 87324; 89055; 93005; 96374; J0696; J0744; J1650; J2405; J3370; Q9967; J7030

== ENCOUNTER 2017-02-01 10:03 | Inpatient (IN) | payer OTHER ==
[~2017-02-01] VITALS: Ht 165.1 cm; Wt 68.0 kg
[~2017-02-01 10:03] MED LIST changes: +LACT1CAP24 PO; +VANC1VIA3 PO
[2017-02-01 14:33] LABS: HEMATOCRIT 40.5 % (34.6-47.8); HEMOGLOBIN 13.9 g/dL (11.7-16.4)
[2017-02-01 14:43] LABS: ASPARTATE AMINO TRANSFERASE 44 U/L (15-37); BLOOD UREA NITROGEN 19 mg/dL (7-18)
[2017-02-01 15:07] VITALS: BP 142/84
[2017-02-01] MEDS ORDERED: TEMAZEPAM 15 MG CAPSULE PO PRN (15:30)
[2017-02-01] MEDS ORDERED: HYDROCHLOROTHIAZIDE 12.5 MG CAPSULE PO ONE (15:30)
[2017-02-01] MEDS ORDERED: MELOXICAM 15 MG TABLET PO PRN (16:00)
[2017-02-01] MEDS ORDERED: CETIRIZINE 10 MG TABLET PO PRN (16:00)
[2017-02-01] MEDS: ENOXAPARIN 40 MG/0.4 ML SQ SCH (16:07)
[2017-02-01] MEDS: HYDROcodone/APAP 5/325 TABLET PO PRN (17:21)
[2017-02-01] MEDS ORDERED: POTASSIUM CHLORIDE 20 MEQ TAB.ER.PRT PO ONE (18:30)
[2017-02-01 19:39] VITALS: BP 150/91
[2017-02-01] MEDS ORDERED: ONDANSETRON 8 MG, DEXAMETHASONE 12 MG in SODIUM CHLORIDE 0.9% 50 ML IVPB SCH (20:30)
[2017-02-01] MEDS: AMLODIPINE 5 MG TABLET PO SCH (20:33)
[2017-02-01] MEDS: predniSOLONE OPHTH SUSP 1%, 5ML EACHEYE SCH ×2 (20:33→21:00)
[2017-02-01] MEDS ORDERED: CYTARABINE IV SCH (21:00)
[2017-02-01] MEDS ORDERED: SODIUM CHLORIDE 0.9% IV SCH (21:00)
[2017-02-01] MEDS: PAROXETINE 10 MG TABLET PO SCH (22:44)
[2017-02-02 03:00] VITALS: BP 129/76
[2017-02-02] MEDS: HYDROcodone/APAP 5/325 TABLET PO PRN (04:54)
[2017-02-02 05:45] LABS: HEMATOCRIT 35.4 % (34.6-47.8); HEMOGLOBIN 12.6 g/dL (11.7-16.4); WHITE BLOOD COUNT 5.4 x10^3/uL (3.4-10)
[2017-02-02 07:27] VITALS: BP 112/67
[2017-02-02] MEDS ORDERED: PAROXETINE 10 MG TABLET PO SCH (09:00)
[2017-02-02] MEDS ORDERED: CYTARABINE IV SCH (09:00)
[2017-02-02] MEDS ORDERED: SODIUM CHLORIDE 0.9% IV SCH (09:00)
[2017-02-02] MEDS: HYDROCHLOROTHIAZIDE 12.5 MG CAPSULE PO SCH (09:30)
[2017-02-02] MEDS: AMLODIPINE 5 MG TABLET PO SCH ×2 (09:32→21:13)
[2017-02-02] MEDS ORDERED: POTASSIUM CHLORIDE 20 MEQ TAB.ER.PRT PO ONE (10:00)
[2017-02-02 10:55] LABS: ASPARTATE AMINO TRANSFERASE 42 U/L (15-37); BLOOD UREA NITROGEN 16 mg/dL (7-18)
[2017-02-02] MEDS: predniSOLONE OPHTH SUSP 1%, 5ML EACHEYE SCH ×4 (11:00→21:13)
[2017-02-02] MEDS: ONDANSETRON 8 MG, DEXAMETHASONE 12 MG in SODIUM CHLORIDE 0.9% 50 ML IVPB SCH (12:13)
[2017-02-02] MEDS: CYTARABINE IV SCH (13:20)
[2017-02-02] MEDS: SODIUM CHLORIDE 0.9% IV SCH (13:20)
[2017-02-02 13:57] VITALS: BP 107/67
[2017-02-02] MEDS: ENOXAPARIN 40 MG/0.4 ML SQ SCH (16:16)
[2017-02-02 20:31] VITALS: BP 119/67
[2017-02-02] MEDS: PAROXETINE 10 MG TABLET PO SCH (22:35)
[2017-02-03] MEDS: SODIUM CHLORIDE 0.9% IV SCH (01:00)
[2017-02-03] MEDS: CYTARABINE IV SCH (01:00)
[2017-02-03 03:56] VITALS: BP 111/68
[2017-02-03 04:44] LABS: HEMOGLOBIN 12.3 g/dL (11.7-16.4)
[2017-02-03 04:55] LABS: ASPARTATE AMINO TRANSFERASE 43 U/L (15-37); BLOOD UREA NITROGEN 19 mg/dL (7-18)
[2017-02-03] MEDS: predniSOLONE OPHTH SUSP 1%, 5ML EACHEYE SCH ×4 (06:16→20:26)
[2017-02-03 08:16] VITALS: BP 106/60
[2017-02-03] MEDS: AMLODIPINE 5 MG TABLET PO SCH ×2 (08:21→20:24)
[2017-02-03] MEDS: PAROXETINE 10 MG TABLET PO SCH ×2 (08:21→20:24)
[2017-02-03] MEDS: HYDROCHLOROTHIAZIDE 12.5 MG CAPSULE PO SCH (08:21)
[2017-02-03 13:50] VITALS: BP 115/63
[2017-02-03] MEDS: ENOXAPARIN 40 MG/0.4 ML SQ SCH (15:33)
[2017-02-03 19:31] VITALS: BP 126/62
[2017-02-04 04:20] VITALS: BP 126/71
[2017-02-04] MEDS: predniSOLONE OPHTH SUSP 1%, 5ML EACHEYE SCH ×4 (05:14→20:53)
[2017-02-04 05:33] LABS: HEMATOCRIT 31.6 % (34.6-47.8); HEMOGLOBIN 10.7 g/dL (11.7-16.4); WHITE BLOOD COUNT 7.7 x10^3/uL (3.4-10)
[2017-02-04 05:45] LABS: BLOOD UREA NITROGEN 19 mg/dL (7-18)
[2017-02-04 05:49] LABS: ASPARTATE AMINO TRANSFERASE 21 U/L (15-37)
[2017-02-04 07:14] VITALS: BP 116/72
[2017-02-04] MEDS: AMLODIPINE 5 MG TABLET PO SCH ×2 (07:21→20:53)
[2017-02-04] MEDS: HYDROCHLOROTHIAZIDE 12.5 MG CAPSULE PO SCH (07:21)
[2017-02-04] MEDS: ONDANSETRON 8 MG, DEXAMETHASONE 12 MG in SODIUM CHLORIDE 0.9% 50 ML IVPB SCH (11:54)
[2017-02-04] MEDS: SODIUM CHLORIDE 0.9% IV SCH (13:06)
[2017-02-04] MEDS: CYTARABINE IV SCH (13:06)
[2017-02-04 13:22] VITALS: BP 95/55
[2017-02-04] MEDS: ENOXAPARIN 40 MG/0.4 ML SQ SCH (15:31)
[2017-02-04 20:48] VITALS: BP 101/57
[2017-02-04] MEDS: PAROXETINE 10 MG TABLET PO SCH ×2 (20:53→22:39)
[2017-02-04] MEDS: DOCUSATE 100 MG CAPSULE PO SCH (20:53)
[2017-02-05] MEDS: CYTARABINE IV SCH (01:08)
[2017-02-05] MEDS: SODIUM CHLORIDE 0.9% IV SCH (01:08)
[2017-02-05 04:54] LABS: HEMATOCRIT 32.6 % (34.6-47.8); HEMOGLOBIN 11.1 g/dL (11.7-16.4); WHITE BLOOD COUNT 6.1 x10^3/uL (3.4-10)
[2017-02-05 04:57] VITALS: BP 117/67
[2017-02-05] MEDS: predniSOLONE OPHTH SUSP 1%, 5ML EACHEYE SCH ×4 (05:01→20:46)
[2017-02-05 05:02] LABS: BLOOD UREA NITROGEN 20 mg/dL (7-18)
[2017-02-05 05:05] LABS: ASPARTATE AMINO TRANSFERASE 18 U/L (15-37)
[2017-02-05 07:24] VITALS: BP 121/67
[2017-02-05] MEDS: AMLODIPINE 5 MG TABLET PO SCH ×2 (08:43→20:46)
[2017-02-05] MEDS: DOCUSATE 100 MG CAPSULE PO SCH ×2 (08:43→20:46)
[2017-02-05] MEDS: HYDROCHLOROTHIAZIDE 12.5 MG CAPSULE PO SCH (08:44)
[2017-02-05 12:59] VITALS: BP 129/67
[2017-02-05] MEDS: ENOXAPARIN 40 MG/0.4 ML SQ SCH (15:34)
[2017-02-05 19:22] VITALS: BP 116/64
[2017-02-05] MEDS: ONDANSETRON 4 MG TABLET PO PRN (20:54)
[2017-02-05] MEDS: PAROXETINE 10 MG TABLET PO SCH (22:24)
[2017-02-06 01:22] VITALS: BP 126/73
[2017-02-06 05:08] LABS: HEMATOCRIT 31.9 % (34.6-47.8); WHITE BLOOD COUNT 3.9 x10^3/uL (3.4-10)
[2017-02-06 05:10] LABS: BLOOD UREA NITROGEN 20 mg/dL (7-18)
[2017-02-06 05:13] LABS: ASPARTATE AMINO TRANSFERASE 18 U/L (15-37)
[2017-02-06] MEDS: predniSOLONE OPHTH SUSP 1%, 5ML EACHEYE SCH ×4 (06:28→21:14)
[2017-02-06 07:32] VITALS: BP 119/72
[2017-02-06] MEDS: DOCUSATE 100 MG CAPSULE PO SCH ×2 (08:28→21:00)
[2017-02-06] MEDS: AMLODIPINE 5 MG TABLET PO SCH ×2 (08:29→21:14)
[2017-02-06] MEDS: HYDROCHLOROTHIAZIDE 12.5 MG CAPSULE PO SCH (08:29)
[2017-02-06] MEDS: ONDANSETRON 8 MG, DEXAMETHASONE 12 MG in SODIUM CHLORIDE 0.9% 50 ML IVPB SCH (12:11)
[2017-02-06 12:20] VITALS: BP 110/64
[2017-02-06] MEDS: CYTARABINE IV SCH (13:04)
[2017-02-06] MEDS: SODIUM CHLORIDE 0.9% IV SCH (13:04)
[2017-02-06] MEDS: ENOXAPARIN 40 MG/0.4 ML SQ SCH (16:49)
[2017-02-06] MEDS: ONDANSETRON 4 MG TABLET PO PRN (17:00)
[2017-02-06 19:24] VITALS: BP 104/62
[2017-02-06] MEDS: PAROXETINE 10 MG TABLET PO SCH (22:35)
[2017-02-07] MEDS: SODIUM CHLORIDE 0.9% IV SCH (00:57)
[2017-02-07] MEDS: CYTARABINE IV SCH (00:57)
[2017-02-07 01:03] VITALS: BP 111/71
[2017-02-07 04:36] LABS: HEMATOCRIT 33.6 % (34.6-47.8); HEMOGLOBIN 11.5 g/dL (11.7-16.4); WHITE BLOOD COUNT 4.6 x10^3/uL (3.4-10)
[2017-02-07 04:48] LABS: BLOOD UREA NITROGEN 22 mg/dL (7-18)
[2017-02-07 04:52] LABS: ASPARTATE AMINO TRANSFERASE 19 U/L (15-37)
[2017-02-07 07:32] VITALS: BP 125/70
[2017-02-07] MEDS: predniSOLONE OPHTH SUSP 1%, 5ML EACHEYE SCH ×4 (10:00→22:19)
[2017-02-07] MEDS: DOCUSATE 100 MG CAPSULE PO SCH ×2 (10:00→22:19)
[2017-02-07] MEDS: AMLODIPINE 5 MG TABLET PO SCH ×2 (10:01→21:00)
[2017-02-07] MEDS: HYDROCHLOROTHIAZIDE 12.5 MG CAPSULE PO SCH (10:01)
[2017-02-07 12:45] VITALS: BP 121/65
[2017-02-07] MEDS: ONDANSETRON 4 MG TABLET PO PRN (13:24)
[2017-02-07] MEDS: ENOXAPARIN 40 MG/0.4 ML SQ SCH (15:40)
[2017-02-07 19:41] VITALS: BP 109/66
[2017-02-07 20:20] VITALS: BP 123/78
[2017-02-07] MEDS: PAROXETINE 10 MG TABLET PO SCH (22:19)
[2017-02-08 03:22] VITALS: BP 103/58
[2017-02-08 04:15] LABS: BLOOD UREA NITROGEN 25 mg/dL (7-18)
[2017-02-08 04:18] LABS: ASPARTATE AMINO TRANSFERASE 17 U/L (15-37); HEMATOCRIT 31.4 % (34.6-47.8); HEMOGLOBIN 10.8 g/dL (11.7-16.4); WHITE BLOOD COUNT 3.5 x10^3/uL (3.4-10)
[2017-02-08] MEDS: predniSOLONE OPHTH SUSP 1%, 5ML EACHEYE SCH (06:34)
[2017-02-08 07:16] VITALS: BP 111/67
== END 2017-02-08 10:10 | disposition home or self-care (01) | DRG 839 ==
LOC: 3NW 13:17
PROVIDERS: ADMIT Internal Medicine Hematology & Oncology; ATTEND Internal Medicine Hematology & Oncology
PROC: 02HV33Z Insertion of Infusion Device into Superior Vena Cava, Percutaneous Approach (ICD-10-PCS; principal; 2017-02-01)
PROC: XW043B3 Introduction of Cytarabine and Daunorubicin Liposome Antineoplastic into Central Vein, Percutaneous Approach, New Technology Group 3 (ICD-10-PCS; 2017-02-06)
DX: Z51.11 Encounter for antineoplastic chemotherapy (principal); C92.00 Acute myeloblastic leukemia, not having achieved remission; I10 Essential (primary) hypertension; F32.9 Major depressive disorder, single episode, unspecified; E78.5 Hyperlipidemia, unspecified; F42.9 Obsessive-compulsive disorder, unspecified; G47.00 Insomnia, unspecified; F41.9 Anxiety disorder, unspecified; K59.00 Constipation, unspecified; Z79.899 Other long term (current) drug therapy
CPT/HCPCS: 36415; 36569; 76937; 77001; 80053; 83735; 85025; 93005; 93308; J1100; J1650; J2405; J9100; Q0162; C1751; J7050

== ENCOUNTER 2020-04-02 07:43 | Day surgery (SDC) | payer MEDICARE, MEDICAID ==
[~2020-04-02] VITALS: Ht 165.1 cm; Wt 68.0 kg
[~2020-04-02 07:43] MED LIST changes: +ACYC-114 PO; -ALPR-475 PO; +ALPR0.5T7 PO; +AMLO-150 PO; -AMLO5TAB2 PO; +D3 PO; +HYDR-2995 PO; -HYDR10TA4 PO; -HYDR12.58 PO; +HYDROCHLOROTH12.5 MG PO; +MAGN400T9 PO; +MELO15TA24 PO; +PANT40TA3 PO; +PARO10TA56 PO; +PHENERGAN PO; -VANC125C2 PO; +VANC125C3 PO; +ZINC PO
[2020-04-02 08:24] VITALS: BP 144/87
[2020-04-02] MEDS ORDERED: ALPR0.5T7 PO (08:53)
[2020-04-02] MEDS ORDERED: DICL75TA3 PO (08:53)
[2020-04-02] MEDS ORDERED: HYDR-3237 PO (08:53)
[2020-04-02] MEDS ORDERED: AMLO-150 PO (08:53)
[2020-04-02 08:56] LABS: BASOPHILS % (AUTO) 1 % (0-1); EOSINOPHILS % (AUTO) 2 % (1-7); LYMPHOCYTES % (AUTO) 39 % (22-44); MEAN CORPUSCULAR HEMOGLOBIN 33.6 pg (27.0-34.8); MEAN CORPUSCULAR HGB CONC 34.6 g/dL (32.4-35.8); MEAN PLATELET VOLUME 6.9 fL (7.4-10.4); MONOCYTES % (AUTO) 10 % (2-9); NEUTROPHILS % (AUTO) 48 % (42-75); PLATELET COUNT 247 x10^3/uL (130-400); RED BLOOD COUNT 4.19 x10^6/uL (3.82-5.3); RED CELL DISTRIBUTION WIDTH 13.5 % (9.6-15.2)
[2020-04-02] MEDS ORDERED: SODIUM CHLORIDE 0.9% 1,000 ML IV SCH (09:00)
[2020-04-02 09:06] LABS: MD NO
[2020-04-02] MEDS ORDERED: LIDOCAINE 1%, 10ML ONE (09:13)
[2020-04-02] MEDS ORDERED: FLUMAZENIL 0.1 MG/1 ML, 5ML ONE (09:25)
[2020-04-02] MEDS ORDERED: FENTANYL PF 100 MCG/2ML ONE ×2 (09:25)
[2020-04-02] MEDS ORDERED: NALOXONE 1 MG/ML, 2ML ONE (09:25)
[2020-04-02] MEDS ORDERED: MIDAZOLAM 1 MG/ML, 5ML ONE (09:25)
== END 2020-04-02 11:30 | disposition home or self-care (01) ==
LOC: OUT 07:43
PROVIDERS: ATTEND Internal Medicine Hematology & Oncology
DX: C92.01 Acute myeloblastic leukemia, in remission (principal); I10 Essential (primary) hypertension; E78.00 Pure hypercholesterolemia, unspecified; F32.9 Major depressive disorder, single episode, unspecified; F41.9 Anxiety disorder, unspecified; Z88.8 Allergy status to other drugs, medicaments and biological substances; Z88.1 Allergy status to other antibiotic agents; Z79.899 Other long term (current) drug therapy; Z98.890 Other specified postprocedural states; Z82.49 Family history of ischemic heart disease and other diseases of the circulatory system
CPT/HCPCS: 36415; 38222; 77012; 85025; 85097; 88237; 88264; 88280; 88305; 88311; 88313; 99156; 99157; J2250; J3010; 85060; J2310